=== PATIENT | female | born 1940 | race Caucasian/White ===

== ENCOUNTER 2016-09-16 14:54 | Outpatient (CLI) | payer MEDICARE, MEDICAID ==
--- NOTE | 2016-09-17 11:27 | Ultrasound Report ---
BILATERAL LOWER EXTREMITY DUPLEX: 09/16/2016 CLINICAL INDICATION: Chronic ulcers. TECHNIQUE: Real-time sonographic vascular imaging was performed by the project management instructor through the lower extremities utilizing both color-flow and Doppler spectral analysis. Multiple manufacturers representative static images were saved for review. RIGHT SIDE SITE PSV WAVEFORM STEN DAMAGE APPRAISER 170 triphasic PSFA 153 triphasic MSFA 167 triphasic DSFA 106 triphasic PFA 102 biphasic POP 125 triphasic ARIADNE 82 monophasic [place] 114 biphasic PER 74 monophasic DPA 19 monophasic LEFT SIDE SITE PSV WAVEFORM STEN DAMAGE APPRAISER 180 triphasic PSFA 108 triphasic MSFA 128 triphasic DSFA 105 triphasic PFA 94 biphasic POP 91 triphasic ARIADNE 85 triphasic [place] 121 triphasic PER 132 triphasic DPA 67 triphasic TECHNIQUE: Real-time scanning was performed. FINDINGS: Right leg: Waveforms are triphasic through the popliteal, with monophasic waveforms in the calf. There is no evidence of a focal velocity increase to suggest a focal hemodynamically significant stenosis. Left leg: Waveforms are diffusely triphasic. There is no evidence of a focal velocity increase to suggest a hemodynamically significant stenosis. IMPRESSION: MONOPHASIC WAVEFORMS IN THE RIGHT CALF, SUGGESTIVE OF SMALL VESSEL DISEASE. NO EVIDENCE OF A FOCAL HEMODYNAMICALLY SIGNIFICANT ARTERIAL STENOSIS IN EITHER LEG. MTDD
== END 2016-09-16 14:55 | disposition home or self-care (01) ==
LOC: DI 14:54
PROVIDERS: ATTEND Family Medicine
DX: L97.929 Non-pressure chronic ulcer of unspecified part of left lower leg with unspecified severity (principal); R93.6 Abnormal findings on diagnostic imaging of limbs
CPT/HCPCS: 93925

== ENCOUNTER 2017-02-08 13:57 | Inpatient (IN) | payer MEDICARE, MEDICAID ==
[2017-02-08] MEDS ORDERED: ALBUTEROL NEB 2.5 MG/3 ML INH STA ×2 (14:34→17:44)
--- NOTE | 2017-02-08 14:34 | ED Physician Documentation ---
History of Present Illness - Stated complaint Stated Complaint: SOA/LOW BP - Chief complaint Chief Complaint: Resp - Additonal information Additional information: hx from pt 76 female pmhx HTN bronchitis and walking pna SOA s CP fever or change in baseline cough for 2 days went to clinic today and o2 sat was in the 70s so sent to ER no hx CAD CHF DVT PE, denies COPD and asthma has venous stasis so legs are wrapped Review of Systems Constitutional: denies: Fever, Chills Cardiac: denies: Chest pain / pressure, Palpitations Respiratory: reports: Dyspnea, Cough. denies: Wheezing GI: denies: Abdominal Pain Musculoskeletal: denies: Extremity swelling Endocrine: denies: Easy bruising / bleeding Immunocompromised: denies: Immunocompromised PD PAST MEDICAL HISTORY - Past Medical History Past Medical History: Yes Cardiovascular: Hypertension, Peripheral Vascular Disease Respiratory: Asthma Neuro: Peripheral neuropathy GI: GERD, Diverticulitis : Incontinence HEENT: Chronic vision loss, Chronic hearing loss Musculoskeletal: None, Other Derm: Herpes zoster Other Past Medical History: narcolepsy - Past Surgical History Past Surgical History: Yes General: Colonoscopy HEENT: Tonsil/Adenoidectomy - Present Medications Home Medications: Ambulatory Orders Medication Instructions Recorded Confirmed Losartan Potassium 50 mg PO DAILY 10/09/15 08/05/16 Oxybutynin [Oxytrol For Women] 1 each TD Q4D 10/09/15 08/05/16 Oxycodone HCl 5 mg PO BID 10/09/15 08/05/16 Cholecalciferol (Vitamin D3) 5,000 units PO DAILY 01/01/16 08/05/16 [Vitamin D3] Cyanocobalamin (Vitamin B-12) 5,000 mcg PO DAILY 01/01/16 08/05/16 [Vitamin B-12] Glucosam/Chond/MSM/[place]/Hyal 1 - 2 tab PO DAILY 01/01/16 08/05/16 [Glucosamine-Chondr Complex Tab] Multivit with Calcium,Iron,Min 1 tab PO DAILY 01/01/16 08/05/16 [Multiple Vitamins For Women] Potassium Gluconate 5 meq PO DAILY 01/01/16 08/05/16 Alpha Lipoic Acid [Lipoic Acid] 600 mg PO DAILY 05/06/16 08/05/16 Calcium Carbonate/Vitamin D3 2 tab PO DAILY 05/06/16 08/05/16 [Calcium 500 + Vit D Caplet] Cinnamon Bark [Cinnamon] 500 mg PO TID 05/06/16 08/05/16 Garlic 1,000 mg PO DAILY 05/06/16 08/05/16 Lactobacillus Acidophilus 2 each PO DAILY 05/06/16 08/05/16 [Acidophilus] [place]-3/Dha/Epa/Fish Oil [Fish Oil 1,000 mg PO BID 05/06/16 08/05/16 1,000 mg Softgel] Ubidecarenone/Vitamin E Mixed 1 each PO DAILY 05/06/16 08/05/16 [Ysj86-Nzz E 100 mg-10 Unit Sfg] Vitamin B Complex 1 each PO DAILY 05/06/16 08/05/16 Vitamin E 400 unit PO BID 05/06/16 08/05/16 - Allergies Allergies/Adverse Reactions: Allergies Allergy/AdvReac Type Severity Reaction Status Date / Time aloe Allergy Unknown Verified 10/09/15 16:32 - Social History Does the pt smoke?: No Smoking Status: Never smoker Does the pt drink ETOH?: No Does the pt have substance abuse?: No - Immunizations Immunizations are current?: Yes PD ED PE NORMAL - Vitals Vital signs reviewed: Yes - General General: Alert and oriented X 3 - HEENT HEENT: PERRL - Neck Neck: Supple, no meningeal sign - Cardiac Cardiac: RRR - Respiratory Respiratory: Other (decrease bilaterally L > R) - Abdomen Abdomen: Soft, Non tender - Derm Derm: Normal color - Extremities Extremities: Other (aileen LE wrapped in compression dressing for venous statis appear approx symm) - Neuro Neuro: Alert and oriented X 3, No motor deficit Results - Vitals Vitals: Vital Signs - 24 hr 02/08/17 02/08/17 02/08/17 14:04 14:14 15:06 Temperature 36.6 C Heart Rate 91 84 Respiratory 20 16 Rate Blood Pressure 142/84 H O2 Saturation 76 L 94 Oxygen O2 Source Nasal cannula Oxygen Flow Rate 4 - EKG (time done) 1448 Rate: Rate (enter#) (82) Rhythm: NSR [place]: Normal Ischemia: Non specific changes Other comments: Other comments (poor shaky baseline despute numerous attempts - coving I but no sig elev and questionable Q waves - doubt acute ischemia - also trop neg after 2 days of sx) - Labs Labs: Laboratory Tests 02/08/17 02/08/17 02/08/17 15:05 15:05 15:05 WBC 7.1 RBC 5.42 H Hgb 13.3 Hct 42.6 MCV 78.7 L MCH 24.5 L MCHC 31.1 L RDW 17.0 H Plt Count 248 MPV 7.3 L Neut # 5.6 Lymph # 0.9 L [place] # 0.5 Eos # 0.1 Baso # 0.0 Absolute Nucleated RBC 0.01 Nucleated RBC % 0.1 D-Dimer 689.4 H Sodium 138 Potassium 4.3 Chloride 95 L Carbon Dioxide 37 H Anion Gap 6.0 BUN 33 H Creatinine 0.7 Estimated GFR (MDRD) 82 L Glucose 120 H Calcium 9.0 Troponin I B-Natriuretic Peptide 02/08/17 02/08/17 15:05 15:05 WBC RBC Hgb Hct MCV MCH MCHC RDW Plt Count MPV Neut # Lymph # [place] # Eos # Baso # Absolute Nucleated RBC Nucleated RBC % D-Dimer Sodium Potassium Chloride Carbon Dioxide Anion Gap BUN Creatinine Estimated GFR (MDRD) Glucose Calcium Troponin I 0.04 B-Natriuretic Peptide 617 H - Rads (name of study) CXR Radiology: See rad report (diomegaly, bilateral hilar fullness, ? fluid overload , opecity laterla lung base could be atelectasis or infiltrate) CTPA Radiology: See rad report (no PE, small left pleural effusion witj atelectasis, L thyroid nodule needs outpt fup sono) PD MEDICAL DECISION MAKING - ED course ED course: profound hypoxia CXR and BNP suggest mild CHF but not enough to explain O2 sat in the 70s no pna no opneumo no effusion got CTPA and no PE seen - also no pericardial effusion, infiltrate etc pt was dec on initial exam and then bit wheeze after nebs, no known hx asthma ( despite NN pt denies, states maybe when she was a teenager but not now) or COPD will start steroids and nebs and perhaps some lasix to diurese as well and feel pt should be admitted for further work up such as echo and tx Departure - Departure Disposition: 66 [facility] DC/Xfer Clinical Impression: Hypoxia Condition: Fair
[2017-02-08 15:18] LABS: BASOPHILS % (AUTO) 0.6 %; EOSINOPHILS # (AUTO) 0.1 10^3/uL (0.0-0.7); EOSINOPHILS % (AUTO) 1.4 %; HGB - HEMOGLOBIN 13.3 g/dL (12.0-16.0); LYMPHOCYTES # (AUTO) 0.9 10^3/uL (1.5-3.5); LYMPHOCYTES % (AUTO) 12.1 %; MEAN CORPUSCULAR HEMOGLOBIN 24.5 pg (27.0-31.0); MEAN CORPUSCULAR HGB CONC 31.1 g/dL (32.0-36.0); MEAN CORPUSCULAR VOLUME 78.7 fL (81.0-99.0); MEAN PLATELET VOLUME 7.3 fL (7.9-10.8); MONOCYTES # (AUTO) 0.5 10^3/uL (0.0-1.0); NEUTROPHILS # (AUTO) 5.6 10^3/uL (1.5-6.6); NEUTROPHILS % (AUTO) 78.9 %; PLT - PLATELET COUNT 248 10^3/uL (130-450); RED BLOOD COUNT 5.42 10^6/uL (4.20-5.40); WHITE BLOOD COUNT 7.1 x10^3/uL (4.8-10.8)
[2017-02-08 15:30] LABS: CREATININE 0.7 mg/dL (0.4-1.0)
--- NOTE | 2017-02-08 16:11 | XRAY Report ---
EXAM: CHEST RADIOGRAPHY EXAM DATE: 02/08/2017 03:49 PM. CLINICAL HISTORY: Soa hypoxia. COMPARISON: None available. TECHNIQUE: 1 view. FINDINGS: Lungs/Pleura: There is increased opacity in the lateral lung bases. No pneumothorax. Mediastinum: Cardiomegaly is present. There is bilateral hilar fullness. There is atherosclerotic phyllis cification in aortic arch. Other: None. IMPRESSION: 1. Cardiomegaly with bilateral hilar fullness, question developing fluid overload. 2. Opacity in the lateral lung bases, which may represent a soft tissue attenuation artifact versus i nfiltrate. [facility] Referring Provider Line: [phone] SITE ID: [id number]
[2017-02-08] MEDS ORDERED: IOPAMIDOL-300 100 ML VIAL ONE (16:16)
[2017-02-08] MEDS ORDERED: IOPAMIDOL-300 100 ML VIAL IVP ONE (16:50)
--- NOTE | 2017-02-08 17:19 | CT Report ---
EXAM: CT ANGIOGRAM CHEST EXAM DATE: 02/08/2017 04:54 PM. CLINICAL HISTORY: Soa hypoxic + d-dimer. COMPARISON: Chest radiograph, same day.. TECHNIQUE: Routine helical imaging was performed through the chest in the pulmonary arterial phase. I V Contrast: 80 mL Isovue 300. Reconstructions: Coronal 3-D MIP reconstructions.Sagittal and coronal. In accordance with CT protocol optimization, one or more of the following dose reduction techniques w ere utilized for this exam: automated exposure control, adjustment of mA and/or KV based on patient s ize, or use of iterative reconstructive technique. FINDINGS: Pulmonary Arteries: Diagnostic quality: There is some respiratory motion degradation in bolus timing is suboptimal, but o verall adequate through the segmental arteries. No evidence for acute or chronic pulmonary emboli. RV/LV is within normal limits. There is no interventricular septal bowing. There is no reflux of cont rast material in the IVC. Lungs/Pleura: There are geographic areas of groundglass attenuation, which can be seen with air daniel ing or small vessel disease. There is a small left pleural effusion measuring approximately 2.2 cm wi th adjacent passive atelectasis. No pneumothorax. No focal infiltrate or consolidation. Mediastinum: Normal. No cardiac enlargement or adenopathy. Thoracic Aorta: Mild atherosclerotic vascular calcifications. Upper Abdomen: Unremarkable. Other: Heterogeneous left thyroid nodule series 7 image 21 measuring 3.1 x 4 cm. IMPRESSION: 1. Negative for pulmonary embolism. 2. Small left pleural effusion with adjacent atelectasis. 3. There is a left thyroid nodule for which a follow-up thyroid ultrasound exam should be considered. [facility] Referring Provider Line: [phone] SITE ID: [id number]
[2017-02-08] MEDS ORDERED: FUROSEMIDE 40 MG/4 ML VIAL IVP STA (17:44)
[2017-02-08] MEDS ORDERED: methylPREDNISolone SUCCINATE 125 MG/2 ML VIAL IVP STA (17:44)
[2017-02-08] MEDS ORDERED: PROCHLORPERAZINE 10 MG/2 ML VIAL IVP PRN (18:09)
[2017-02-08] MEDS ORDERED: oxyCODONE 5 MG TABLET PO PRN (18:09)
[2017-02-08] MEDS ORDERED: ONDANSETRON 4 MG/2 ML VIAL IVP PRN (18:09)
[2017-02-08] MEDS ORDERED: ACETAMINOPHEN 325 MG TABLET PO PRN (18:09)
[2017-02-08] MEDS ORDERED: OXYBUTYNIN TOP SCH (18:15)
[2017-02-08 19:03] LABS: ABG PH 7.32 (7.35-7.45)
[2017-02-08 19:04] LABS: ABG BASE EXCESS 7.4 mmol/L (-2.0-3.0); ABG HCO3 36.1 mmol/L (22.0-26.0); ABG OXYGEN SATURATION 95 % (94-98); ABG PCO2 72 mmHg (34-45); ABG PO2 80 mmHg (80-100); ABG TCO2 38.3 MMOL/L (21.0-29.0); ALLEN TEST POSITIVE
[2017-02-08] MEDS: oxyCODONE 5 MG TABLET PO PRN (19:52)
[2017-02-08] MEDS: OMEGA-3 ACID ETHYL ESTERS 1 GM CAPSULE PO SCH (20:56)
[2017-02-08] MEDS: FUROSEMIDE 40 MG/4 ML VIAL IVP SCH (20:58)
[2017-02-08] MEDS: CHLORHEXIDINE GLUCONATE 15 ML UDC PO SCH (20:58)
[2017-02-08] MEDS: methylPREDNISolone SUCCINATE 40 MG/ML VIAL IVP SCH ×2 (21:07→22:57)
[2017-02-08] MEDS: SODIUM CHLORIDE FLUSH 0.9% 10 ML SYRINGE IVP SCH (21:07)
[2017-02-09 01:05] LABS: ABG BASE EXCESS 9.3 mmol/L (-2.0-3.0); ABG OXYGEN SATURATION 92 % (94-98); ABG PH 7.27 (7.35-7.45); ABG PO2 72 mmHg (80-100); ALLEN TEST POSITIVE
[2017-02-09 01:09] LABS: ABG PCO2 89 mmHg (34-45); ABG TCO2 42.8 MMOL/L (21.0-29.0)
[2017-02-09 02:48] LABS: ABG BASE EXCESS 7.2 mmol/L (-2.0-3.0); ABG HCO3 27.8 mmol/L (22.0-26.0); ABG OXYGEN SATURATION 95 % (94-98); ABG PH 7.26 (7.35-7.45); ABG PO2 81 mmHg (80-100)
[2017-02-09 02:49] LABS: ALLEN TEST POSITIVE
[2017-02-09 02:50] LABS: ABG PCO2 87 mmHg (34-45); ABG TCO2 40.4 MMOL/L (21.0-29.0)
[2017-02-09 05:37] LABS: BASOPHILS % (AUTO) 0.1 %; HGB - HEMOGLOBIN 12.7 g/dL (12.0-16.0); LYMPHOCYTES # (AUTO) 0.2 10^3/uL (1.5-3.5); LYMPHOCYTES % (AUTO) 4.4 %; MEAN CORPUSCULAR HEMOGLOBIN 24.2 pg (27.0-31.0); MEAN CORPUSCULAR HGB CONC 30.3 g/dL (32.0-36.0); MEAN PLATELET VOLUME 7.7 fL (7.9-10.8); MONOCYTES % (AUTO) 0.7 %; NEUTROPHILS # (AUTO) 4.1 10^3/uL (1.5-6.6); NEUTROPHILS % (AUTO) 94.8 %; PLT - PLATELET COUNT 225 10^3/uL (130-450); RED BLOOD COUNT 5.27 10^6/uL (4.20-5.40); RED CELL DISTRIBUTION WIDTH 17.2 % (12.0-15.0); WHITE BLOOD COUNT 4.3 x10^3/uL (4.8-10.8)
[2017-02-09 05:55] LABS: ALBUMIN 3.1 g/dL (3.2-5.5); ALBUMIN/GLOBULIN RATIO 0.9 (1.0-2.2); BILIRUBIN,TOTAL 0.4 mg/dL (0.2-1.0); CREATININE 0.6 mg/dL (0.4-1.0); MAGNESIUM 2.2 mg/dL (1.7-2.8); TOTAL PROTEIN 6.7 g/dL (6.7-8.2)
[2017-02-09] MEDS: SODIUM CHLORIDE FLUSH 0.9% 10 ML SYRINGE IVP SCH ×3 (06:40→22:18)
[2017-02-09] MEDS: methylPREDNISolone SUCCINATE 40 MG/ML VIAL IVP SCH ×3 (06:40→22:17)
--- NOTE | 2017-02-09 08:02 | HISTORY & PHYSICAL EXAMINATION ---
Chief Complaint - Chief Complaint Chief Complaint: Shortness of breath History of Present Illness - Admitted From Admitted From:: Emergency department - History Obtained From Records Reviewed: Yes History obtained from: Patient Exam Limitations: None - History of Present Illness HPI Comment/Other: Patient is a 76-year-old female with a past medical history significant for morbid obesity, childhood asthma, hypertension, overactive bladder, chronic venous stasis of her lower extremities, chronic pain of her lower extremities and right hip from arthritis who presented to the emergency department with a chief complaint of shortness of breath. The patient states that she was in her normal state of health until 2 days ago when she states that she began feeling short of air. She states that she went for an appointment regarding her lower extremity venous stasis as she was going to be getting ready for a procedure. She states that at that appointment she was noted to have an oxygen saturation in the 80s and her blood pressure was low. She states that she was told to go to the ER at that time however she decided against it as she was with her daughter and she states that she did not feel that bad. She states that she called her primary care physician when she got back home but did not receive a call back. She states that that night she had a lot of trouble sleeping and was having difficulty breathing throughout the night. She states that over the last 2 days she has had increasing cough with thick phlegm. She states that she has had to sleep in a recliner and she states that if she lies back even slightly she becomes very short of air. She states that she cannot lie flat at all. Patient states that at home she gets around with a wheelchair and today she states that just getting from her recliner to her wheelchair she became very short of air. The patient states that she was finally able to get a hold of her primary care physician this morning and was able to go in for a walk-in appointment. She states that just going to the appointment she became very exhausted and short of air. When she arrived her oxygen saturation was in the 70s and she was told to go to the emergency department. The patient states that at this point she had severe enough symptoms that she finally decided to go to the ER. The patient denies any fevers or chills. She denies any chest pain or increased lower extremity swelling. The patient states that she does have chronic lower extremity swelling. She does admit to paroxysmal nocturnal dyspnea for the last 2 days. Patient denies any headaches, blurred vision, runny nose, sore throat, nasal congestion, abdominal pain, nausea, vomiting, diarrhea, constipation, urinary urgency, dysuria, recent unintentional weight loss, weight gain, neck stiffness or any focal neurologic deficits. The patient does admit to chronic pain in her right hip and her left lower extremity. On presentation to the emergency department the patient was afebrile heart rate was 91 she was slightly hypertensive and tachypneic the patient's oxygen saturation was 76% on room air. The patient did not appear to have any conversational dyspnea nor was she in respiratory distress at rest. However it was noted that if she exerted herself at all that she would become short of air. The patient underwent routine lab testing which revealed no leukocytosis and a normal hemoglobin. The patient did have an elevated d-dimer. She also was found to have an elevated CO2 on her chemistry of 37 and an elevated BNP of 617. Otherwise the remainder of her tests including her troponin were all within normal limits. The patient underwent imaging including a chest x-ray which revealed cardiomegaly with bilateral hilar fullness questionable for fluid overload. She did have opacities in the lateral lung base which could represent soft tissue attenuation versus infiltrate. The patient then underwent a CT angios of her chest this revealed no pulmonary embolism and a small left pleural effusion with adjacent atelectasis. She was also noted to have a left thyroid nodule. The patient was found to have groundglass attenuation which can be seen in air trapping or small vessel disease. There was no findings of focal infiltrate or consolidation. The patient had a blood gas performed in the emergency department which revealed that she was acidotic with a pH of 7.32 with hypercapnia and a CO2 of 72 and a PO2 of 80 on 4 L of oxygen. The patient was admitted to the intensive care unit on BiPAP for acute respiratory failure with hypoxia and hypercapnia. History - Past Medical History Cardiovascular: reports: Hypertension, Peripheral Vascular Disease Respiratory: reports: Asthma Neuro: reports: Peripheral neuropathy GI: reports: GERD, Diverticulitis : reports: Incontinence HEENT: reports: Chronic vision loss, Chronic hearing loss Psych: reports: Anxiety Musculoskeletal: reports: None, Other Derm: reports: Herpes zoster MRSA Hx?: Yes Other Past Medical History: narcolepsy - Past Surgical History General: reports: Colonoscopy HEENT: reports: Tonsil/Adenoidectomy - Family & Social History Family History: Mother: , CAD, Father: , Alcoholism (Daughter), Brother: Mental Illness, Other family: Alcoholism Living arrangement: At home Living Situation: Alone Social History Notes: The patient is originally from [place], [place]. She moved to [facility] to be closer to her daughter. She currently lives in [place] in an apartment. She gets around the house with a wheelchair and is able to stand and transfer. The patient has 4 daughters and 12 grandchildren. She is and has been since 1998. She has never smoked she does occasionally drink a glass of wine and denies any illicit drug use. - POLST Patient has POLST: No POLST Status: DNR Meds/Allgy - Home Medications Home Medications: Ambulatory Orders Medication Instructions Recorded Confirmed Losartan Potassium 50 mg PO DAILY 10/09/15 08/05/16 Oxybutynin [Oxytrol For Women] 1 each TD Q4D 10/09/15 08/05/16 Oxycodone HCl 5 mg PO BID 10/09/15 08/05/16 Cholecalciferol (Vitamin D3) 5,000 units PO DAILY 01/01/16 08/05/16 [Vitamin D3] Cyanocobalamin (Vitamin B-12) 5,000 mcg PO DAILY 01/01/16 08/05/16 [Vitamin B-12] Glucosam/Chond/MSM/[place]/Hyal 1 - 2 tab PO DAILY 01/01/16 08/05/16 [Glucosamine-Chondr Complex Tab] Multivit with Calcium,Iron,Min 1 tab PO DAILY 01/01/16 08/05/16 [Multiple Vitamins For Women] Potassium Gluconate 5 meq PO DAILY 01/01/16 08/05/16 Alpha Lipoic Acid [Lipoic Acid] 600 mg PO DAILY 05/06/16 08/05/16 Calcium Carbonate/Vitamin D3 2 tab PO DAILY 05/06/16 08/05/16 [Calcium 500 + Vit D Caplet] Cinnamon Bark [Cinnamon] 500 mg PO TID 05/06/16 08/05/16 Garlic 1,000 mg PO DAILY 05/06/16 08/05/16 Lactobacillus Acidophilus 2 each PO DAILY 05/06/16 08/05/16 [Acidophilus] [place]-3/Dha/Epa/Fish Oil [Fish Oil 1,000 mg PO BID 05/06/16 08/05/16 1,000 mg Softgel] Ubidecarenone/Vitamin E Mixed 1 each PO DAILY 05/06/16 08/05/16 [[id number] E 100 mg-10 Unit Sfg] Vitamin B Complex 1 each PO DAILY 05/06/16 08/05/16 Vitamin E 400 unit PO BID 05/06/16 08/05/16 - Allergies Allergies/Adverse Reactions: Allergies Allergy/AdvReac Type Severity Reaction Status Date / Time aloe Allergy Unknown Verified 10/09/15 16:32 Review of Systems - Other Findings Other Findings: A comprehensive review of systems was performed the pertinent positives and negatives are stated above in the HPI and the remainder of the review of systems is negative. Exam - Vital Signs Reviewed Vital Signs: Yes Vital Signs: Vital Signs x48h Temp Pulse Resp BP Pulse Ox 02/09/17 07:00 77 18 108/57 L 92 02/09/17 06:00 76 17 115/58 L 93 02/09/17 05:00 74 17 116/65 95 02/09/17 04:00 36.7 C 76 18 119/54 L 95 02/09/17 03:00 74 21 121/56 L 94 02/09/17 02:00 74 20 119/52 L 91 L 02/09/17 01:00 72 21 113/54 L 92 02/09/17 00:00 36.8 C 80 21 117/57 L 95 - Physical Exam General Appearance: positive: Alert, Moderate distress (Short of air, tachypneic ), Other (Morbidly obese) Eyes Bilateral: positive: Normal inspection, PERRL, EOMI, No lid inflammation, Conjunctivae nml, No scleral icterus ENT: positive: ENT inspection nml, Pharynx nml, No signs of dehydration. negative: Purulent nasal drainage, Pharyngeal erythema, Oral lesions Neck: positive: Nml inspection, Thyroid nml, No JVD, Trachea midline. negative : Thyromegaly, Lymphadenopathy (R), Lymphadenopathy (L), Carotid bruit, Tracheal deviation Respiratory: positive: Wheezes (Mild, scattered), Rales (Bases), Other ( Dereased breath sounds bilaterally) Cardiovascular: positive: Regular rate & rhythm, No murmur, No gallop Peripheral Pulses: positive: 2+ Abdomen: positive: Non-tender, No organomegaly, Nml bowel sounds, Other (Obese) . negative: Guarding, Rebound Back: positive: Nml inspection. negative: CVA tenderness (R), CVA tenderness (L ) Skin: positive: Dry, Other (Chronic changes of venous stasis in bilateral LEs). negative: Cyanosis Extremities: positive: Full ROM, Pedal edema (Bilateral LE edema) Neurologic/Psychiatric: positive: Oriented x3, CN's nml (2-12), Motor nml, Sensation nml, Sensory loss (Decreased in LEs) Conclusion/Plan - Problem List (1) Acute respiratory failure with hypoxia and hypercapnia Conclusion/Plan: Patient presented with shortness of breath, orthopnea, trouble sleeping and history of narcolepsy. She is also morbidly obese. She was hypoxic with O2 sat in 70s on presentation and ABG showed hypoxia and hypercapnia with respiratory acidosis. Patient admitted to ICU on BiPAP. Likely cause of respiratory failure is likely multifactorial: Patient does not have pneumonia or PE but CXR does show cardiomegaly with evidence of pulmonary congestion, she has orthopnea at home and LE swelling concerning for CHF given her body habitus this is likely diastolic but could also be systolic. Patient likely has chronic undiagnosed LISANDRA per her symptoms of day time sleepiness and night time awakenings plus body habitus. Patient also likely has obesity hypoventilation syndrome. She does have history of asthma and did improve slightly with nebs in the ER therefore might have some COPD/Asthma as well. Plan: BiPAP Lasix with fluid and salt restriction Echo Nebs, steroids, O2 Monitor ABGs, BNP and I/Os (2) COPD exacerbation Conclusion/Plan: Patient improved with nebs in ER and has history of Asthma so will treat for COPD exacerbation Presented with acute respiratory failure Plan: Nebs prn Steroid TID O2 BiPAP (3) CHF exacerbation Conclusion/Plan: Patient presented with acute respiratory failure with hypoxia and hypercapnia and found to have orthopnea, PND, LE edema and has pulmonary congestion on Xray with cardiomegaly Patient likely has diastolic heart failure with pulmonary hypertension likely from OHS/LISANDRA but will need echo to confirm Plan: IV lasix BID Daily weights Strict I/Os Echo Will add BB and STEFF Inh if systolic HF Qualifiers: Congestive heart failure type: unspecified congestive heart failure type Qualified Code(s): I50.9 - Heart failure, unspecified (4) LISANDRA (obstructive sleep apnea) Conclusion/Plan: Patient appears to likely have LISANDRA given her obesity and symptoms Will treat her with BiPAP and O2 at night while hospitalized Will need outpatient Sleep study (5) Obesity Conclusion/Plan: Patient is morbidly obese and has acute respiratory failure with hypercapnia and hypoxia She likely has Obesity Hypoventilation syndrome which is affecting her breathing She will need to lose weight She will also need outpatient PFTs and ABG once her pH is normal to confirm. Qualifiers: Body mass index: BMI 40.0-44.9 (6) Hypertension Conclusion/Plan: Patient has history of hypertension which could have lead to CHF and pulm HTN Plan: Echo Continue home BP meds Monitor BP Qualifiers: Hypertension type: essential hypertension Qualified Code(s): I10 - Essential (primary) hypertension (7) Thyroid nodule Conclusion/Plan: Check TSH, T3, T4 Ultrasound of the thyroid (8) Prophylactic use of low molecular weight heparin for venous thromboembolism Conclusion/Plan: Place on lovenox while hospitalized for DVT prophylaxis - Lab Results Lab results reviewed: Yes Fish Bones: 02/09/17 04:46 02/09/17 04:46 Other Lab Results: Laboratory Results WBC 4.3 x10^3/uL (4.8-10.8) L 02/09/17 04:46 RBC 5.27 10^6/uL (4.20-5.40) 02/09/17 04:46 Hgb 12.7 g/dL (12.0-16.0) 02/09/17 04:46 Hct 42.1 % (37.0-47.0) 02/09/17 04:46 MCV 80.0 fL (81.0-99.0) L 02/09/17 04:46 MCH 24.2 pg (27.0-31.0) L 02/09/17 04:46 MCHC 30.3 g/dL (32.0-36.0) L 02/09/17 04:46 RDW 17.2 % (12.0-15.0) H 02/09/17 04:46 Plt Count 225 10^3/uL (130-450) 02/09/17 04:46 MPV 7.7 fL (7.9-10.8) L 02/09/17 04:46 Neut # 4.1 10^3/uL (1.5-6.6) 02/09/17 04:46 Lymph # 0.2 10^3/uL (1.5-3.5) L 02/09/17 04:46 Prentiss # 0.0 10^3/uL (0.0-1.0) 02/09/17 04:46 Eos # 0.0 10^3/uL (0.0-0.7) 02/09/17 04:46 Baso # 0.0 10^3/uL (0.0-0.1) 02/09/17 04:46 Absolute Nucleated RBC 0.00 x10^3/uL 02/09/17 04:46 Nucleated RBC % 0.1 /100WBC 02/09/17 04:46 D-Dimer 689.4 ng/mL (200.0-255.0) H 02/08/17 15:05 Bld Gas Analysis Time 0245 02/09/17 02:30 Sample Site LEFT RADIAL 02/09/17 02:30 ABG pH 7.26 (7.35-7.45) L 02/09/17 02:30 ABG pCO2 87 mmHg (34-45) H* 02/09/17 02:30 ABG pO2 81 mmHg (80-100) 02/09/17 02:30 ABG HCO3 27.8 mmol/L (22.0-26.0) H 02/09/17 02:30 ABG Total CO2 40.4 MMOL/L (21.0-29.0) H* 02/09/17 02:30 ABG O2 Saturation 95 % (94-98) 02/09/17 02:30 ABG Oximetry Spot Check 92 % 02/09/17 00:55 ABG Base Excess 7.2 mmol/L (-2.0-3.0) H 02/09/17 02:30 Jose Martin Test POSITIVE 02/09/17 02:30 O2 Delivery Device BiPAP 02/09/17 02:30 O2 Liters/Min 4.00 LPM 02/08/17 18:29 FiO2 35.00 02/09/17 02:30 EPAP 6 cmH2O 02/09/17 02:30 IPAP 16 cmH2O 02/09/17 02:30 Sodium 143 mmol/L (135-145) 02/09/17 04:46 Potassium 4.7 mmol/L (3.5-5.0) 02/09/17 04:46 Chloride 97 mmol/L (101-111) L 02/09/17 04:46 Carbon Dioxide 38 mmol/L (21-32) H 02/09/17 04:46 Anion Gap 7.0 (6-13) 02/09/17 04:46 BUN 26 mg/dL (6-20) H 02/09/17 04:46 Creatinine 0.6 mg/dL (0.4-1.0) 02/09/17 04:46 Estimated GFR (MDRD) 97 (>89) 02/09/17 04:46 Glucose 160 mg/dL (70-100) H 02/09/17 04:46 Calcium 9.0 mg/dL (8.5-10.3) 02/09/17 04:46 Magnesium 2.2 mg/dL (1.7-2.8) 02/09/17 04:46 Total Bilirubin 0.4 mg/dL (0.2-1.0) 02/09/17 04:46 AST 18 IU/L (10-42) 02/09/17 04:46 ALT 22 IU/L (10-60) 02/09/17 04:46 Alkaline Phosphatase 60 IU/L (42-121) 02/09/17 04:46 Troponin I < 0.04 ng/mL (<0.49) 02/09/17 04:46 B-Natriuretic Peptide 620 pg/mL (5-100) H 02/09/17 04:46 Total Protein 6.7 g/dL (6.7-8.2) 02/09/17 04:46 Albumin 3.1 g/dL (3.2-5.5) L 02/09/17 04:46 Globulin 3.6 g/dL (2.1-4.2) 02/09/17 04:46 Albumin/Globulin Ratio 0.9 (1.0-2.2) L 02/09/17 04:46 - Diagnostic Imaging Results Diagnostic Imaging Results: positive: Final report reviewed Diagnostic Imaging Results Comments: Chest x-ray Impression: 1. Cardiomegaly with bilateral hilar fullness, question development of fluid overload. 2. Opacity in the lateral lung base, which may represent a soft tissue attenuation artifact versus infiltrate. CT angiogram chest/thorax Impression: 1. Negative for pulmonary embolism. 2. Small left pleural effusion with adjacent atelectasis 3. There is a left thyroid nodule for which follow-up thyroid ultrasound exam should be considered. Core Measures - Anticipated LOS I expect patient to be DC'd or transferred within 96 hours.: Yes - DVT/VTE - Prophylaxis VTE/DVT Prophylaxis med ordered at admit?: Yes
[2017-02-09] MEDS ORDERED: POTASSIUM GLUCONATE PO SCH ×2 (09:00→14:00)
[2017-02-09] MEDS: OMEGA-3 ACID ETHYL ESTERS 1 GM CAPSULE PO SCH ×2 (09:26→20:47)
[2017-02-09] MEDS: CALCIUM CARBONATE CHEW 500 MG TABLET PO SCH (09:26)
[2017-02-09] MEDS: MULTIVITAMIN W/MINERALS TABLET PO SCH (09:27)
[2017-02-09] MEDS: CHOLECALCIFEROL 5,000 UNIT CAPSULE PO SCH (09:28)
[2017-02-09] MEDS: FUROSEMIDE 40 MG/4 ML VIAL IVP SCH ×2 (09:28→20:47)
[2017-02-09 09:34] LABS: T4 (THYROXINE) 6.44 ug/dL (6.09-12.23)
[2017-02-09 09:37] LABS: THYROID STIMULATING HORMONE 0.52 uIU/mL (0.34-5.60)
[2017-02-09 09:39] LABS: FREE T4 (FREE THYROXINE) 0.91 ng/dL (0.58-1.64)
[2017-02-09 09:44] LABS: TOTAL T3 0.52 ng/mL (0.87-1.78)
[2017-02-09 09:55] LABS: ABG PH 7.32 (7.35-7.45); ABG PO2 65 mmHg (80-100)
[2017-02-09 09:56] LABS: ABG BASE EXCESS 5.4 mmol/L (-2.0-3.0); ABG HCO3 33.7 mmol/L (22.0-26.0); ABG OXYGEN SATURATION 92 % (94-98); ABG TCO2 35.8 MMOL/L (21.0-29.0)
[2017-02-09 10:02] LABS: ABG PCO2 67 mmHg (34-45)
[2017-02-09] MEDS: CHLORHEXIDINE GLUCONATE 15 ML UDC PO SCH ×2 (10:14→20:47)
[2017-02-09] MEDS: ENOXAPARIN 40 MG/0.4 ML SYRINGE SUBQ SCH (10:15)
[2017-02-09] MEDS: LOSARTAN 50 MG TABLET PO SCH (11:08)
[2017-02-09] MEDS: FAMOTIDINE 20 MG TABLET PO SCH (11:09)
[2017-02-09] MEDS: POLYETHYLENE GLYCOL 3350 17 GM PACKET PO SCH (11:10)
[2017-02-09] MEDS: Cyanocobalamin (Vitamin B-12) [Vitamin B-12] 5,000 MCG PO SCH (12:13)
[2017-02-09] MEDS: oxyCODONE 5 MG TABLET PO PRN ×2 (13:02→20:44)
--- NOTE | 2017-02-09 13:39 | XRAY Preliminary Report ---
Exam: XR CHEST 1 VIEW IMPRESSION: Minimal left basilar atelectasis and trace left pleural effusion. Otherwise, lungs are clear. [facility] SITE ID: [id number]
--- NOTE | 2017-02-09 13:39 | XRAY Report ---
EXAM: CHEST RADIOGRAPHY EXAM DATE: 02/09/2017 09:15 AM. CLINICAL HISTORY: Hypoxia. COMPARISON: CT and plain film from yesterday. TECHNIQUE: 1 view. FINDINGS: Lungs/Pleura: Minimal left basilar atelectasis. Trace left pleural effusion. No pneumothorax. Mediastinum: Within exam limitations, the cardiomediastinal contour is normal. Mild aortic calcificat ions consistent with atherosclerotic disease. Other: Mild osteoarthritis of both shoulders. Degenerative changes within the spine. IMPRESSION: Minimal left basilar atelectasis and trace left pleural effusion. Otherwise, lungs are clear. [facility] Referring Provider Line: [phone] SITE ID: [id number]
[2017-02-09] MEDS: SODIUM CHLORIDE FLUSH 0.9% 10 ML SYRINGE IVP PRN ×2 (14:53→20:48)
--- NOTE | 2017-02-09 15:11 | Ultrasound Report ---
EXAM: THYROID ULTRASOUND EXAM DATE: 02/09/2017 10:41 AM. CLINICAL HISTORY: Left thyroid nodule seen on CT. COMPARISON: CTA chest 02/08/2017. TECHNIQUE: Real time sonographic imaging of the thyroid was performed by the elevators inspector. Multiple re presentative static images were saved for review. FINDINGS: Technically suboptimal evaluation secondary to patient positioning. THYROID GLAND: Right Lobe: 3.6 x 1.9 x 2.0 cm, volume 7 cc. Diffusely heterogeneous. Right Lobe Nodules: 1.6 cm mildly hypoechoic nodule. The margins are not definitely distinct. No calc ifications or internal vascular flow demonstrated. Left Lobe: 4.0 x 2.9 x 3.1 cm, volume 19 cc. The left thyroid lobe is nearly completely replaced by a heterogeneous nodule measuring 4.0 x 2.9 x 2.8 cm. There is no definite internal calcification and no significant internal vascular flow. Isthmus: 0.8 cm AP. Isthmic Nodules: 1.2 cm hypoechoic nodule. The isthmus and nodule were only imaged in one view; unabl e to fit transducer sagittally. LYMPH NODES: No adenopathy demonstrated in the central or lateral compartment. OTHER: None. IMPRESSION: 1. Technically suboptimal evaluation secondary to patient positioning. 2. Multiple thyroid nodules as above. The largest nodule is in the left lobe and meets consensus crit gregor for tissue sampling. Management recommendations are based on 2015 [place] Management Guidelines for A dult Patients with Thyroid Nodules and Differentiated Thyroid Cancer. [facility] Referring Provider Line: [phone] SITE ID: [id number]
--- NOTE | 2017-02-09 15:11 | Ultrasound Preliminary Report ---
Exam: US HEAD OR NECK SOFT TISSUE IMPRESSION: 1. Technically suboptimal evaluation secondary to patient positioning. 2. Multiple thyroid nodules as above. The largest nodule is in the left lobe and meets consensus crit eria for tissue sampling. Management recommendations are based on 2015 [place] [employer] Management Guidelines for A dult Patients with Thyroid Nodules and Differentiated Thyroid Cancer. [facility] SITE ID: [id number]
--- NOTE | 2017-02-09 16:37 | PROVIDER PROGRESS NOTE ---
Assessment/Plan - Problem List (1) Acute respiratory failure with hypoxia and hypercapnia Assessment/Plan: Patient presented with shortness of breath, orthopnea, trouble sleeping and history of narcolepsy. She is also morbidly obese. She was hypoxic with O2 sat in 70s on presentation and ABG showed hypoxia and hypercapnia with respiratory acidosis. Patient admitted to ICU on BiPAP. Likely cause of respiratory failure is likely multifactorial: Patient does not have pneumonia or PE but CXR does show cardiomegaly with evidence of pulmonary congestion, she has orthopnea at home and LE swelling concerning for CHF given her body habitus this is likely diastolic but could also be systolic. Patient likely has chronic undiagnosed LISANDRA per her symptoms of day time sleepiness and night time awakenings plus body habitus. Patient also likely has obesity hypoventilation syndrome. She does have history of asthma and did improve slightly with nebs in the ER therefore might have some COPD/Asthma as well. Patient appears much improved with lasix and BiPAP Off BiPAP this am ABG looks improved and patient alert Patient still short of breath with minimal exertion Will keep in ICU and watch closely in the case she needs BiPAP again tonight O2 requirements decreasing (2) COPD exacerbation Conclusion/Plan: Patient improved with nebs in ER and has history of Asthma so will treat for COPD exacerbation Presented with acute respiratory failure Continue Nebs prn Steroid TID O2 BiPAP as needed (3) CHF exacerbation Conclusion/Plan: Patient presented with acute respiratory failure with hypoxia and hypercapnia and found to have orthopnea, PND, LE edema and has pulmonary congestion on Xray with cardiomegaly Patient likely has diastolic heart failure with pulmonary hypertension likely from OHS/LISANDRA but will need echo to confirm Continue IV lasix BID Good urine output Echo pending no tech over holiday Will add BB and STEFF Inh if systolic HF (4) LISANDRA (obstructive sleep apnea) Conclusion/Plan: Patient appears to likely have LISANDRA given her obesity and symptoms Will treat her with BiPAP and O2 at night while hospitalized Will need outpatient Sleep study (5) Obesity Conclusion/Plan: Patient is morbidly obese and has acute respiratory failure with hypercapnia and hypoxia She likely has Obesity Hypoventilation syndrome which is affecting her breathing She will need to lose weight She will also need outpatient PFTs and ABG once her pH is normal to confirm. Qualifiers: Body mass index: BMI 40.0-44.9 (6) Hypertension Conclusion/Plan: Patient has history of hypertension which could have lead to CHF and pulm HTN Plan: Echo pending Continue home BP meds Monitor BP (7) Thyroid nodule Conclusion/Plan: Thyroid ultrasound done recs biopsy of the nodule Patient will need outpatient biopsy TSH is normal (8) Prophylactic use of low molecular weight heparin for venous thromboembolism Conclusion/Plan: Place on lovenox while hospitalized for DVT prophylaxis - Current Meds Current Meds: Current Medications Generic Name Dose Route Start Last Admin Trade Name Freq PRN Reason Stop Dose Admin Calcium Carbonate/Glycine 1,000 mg 02/09/17 09:00 02/09/17 09:26 Tums PO 1,000 mg DAILY TED Administration Chlorhexidine Gluconate 15 ml 02/08/17 21:00 02/09/17 10:14 Peridex PO 15 ml BID TED Administration Cholecalciferol 5,000 unit 02/09/17 09:00 02/09/17 09:28 Vitamin D3 PO 5,000 unit DAILY TED Administration Enoxaparin Sodium 40 mg 02/09/17 09:00 02/09/17 10:15 Lovenox SUBQ Not Given DAILY TED Famotidine 20 mg 02/09/17 09:00 02/09/17 11:09 Pepcid PO Not Given DAILY TED Furosemide 40 mg 02/08/17 21:00 02/09/17 09:28 Lasix Inj 40 Mg Vial IVP 40 mg BID TED Administration Losartan Potassium 50 mg 02/09/17 09:00 02/09/17 11:08 Cozaar PO Not Given DAILY TED Methylprednisolone 40 mg 02/08/17 19:00 02/09/17 14:50 Solu-Medrol (40mg Vial) IVP 40 mg TID TED Administration Multivitamins/Minerals 1 tab 02/09/17 08:00 02/09/17 09:27 Theragran M PO 1 tab DAILYWM TED Administration [id number] Ethyl Esters 1 gm 02/08/17 21:00 02/09/17 09:26 Lovaza PO 1 gm BID TED Administration Oxycodone HCl 5 mg 02/08/17 18:09 02/09/17 13:02 Roxicodone PO 5 mg Q4HR PRN Administration Pain 5 to 7 Cyanocobalamin ( 1 each 02/09/17 09:00 02/09/17 12:13 Vitamin B-12) [ PO Not Given Vitamin B-12] 5,000 DAILY TED Mcg Polyethylene Glycol 17 gm 02/09/17 09:00 02/09/17 11:10 Miralax PO Not Given DAILY TED Sodium Chloride 10 ml 02/08/17 18:09 02/09/17 14:53 Normal Saline Flush 0.9% IVP 10 ml PRN PRN Administration NEEDED PER PROVIDER ORDERS Sodium Chloride 10 ml 02/08/17 22:00 02/09/17 06:40 Normal Saline Flush 0.9% IVP 10 ml Q8HR TED Administration - Lab Result Fish Bone Diagrams: 02/09/17 04:46 02/09/17 04:46 - Diagnostic Imaging Results Diagnostic Imaging Results: Final report reviewed - Additional Planning Condition/Complexity: Guarded My Orders: My Active Orders 02/10/17 09:00 ABG - ARTERIAL BLOOD GAS [BG] DAILY 02/11/17 09:00 ABG - ARTERIAL BLOOD GAS [BG] DAILY 02/12/17 09:00 ABG - ARTERIAL BLOOD GAS [BG] DAILY 02/13/17 09:00 ABG - ARTERIAL BLOOD GAS [BG] DAILY 02/14/17 09:00 ABG - ARTERIAL BLOOD GAS [BG] DAILY 02/08/17 18:44 BiPAP/CPAP [RC] .ONCE Elevate HOB 30 - 45 degrees [RC] .ONCE Oral Care - Nursing [RC] Q2HR 02/08/17 21:00 Chlorhexidine [Peridex] 15 ml PO BID 02/09/17 09:47 Arterial Blood Gases - RT [RC] .ONCE 02/09/17 12:32 RT [Nebulizer/MDI Tx.] [RC] QID 02/09/17 13:16 Wound Care - MAC [RC] .ONCE 02/09/17 14:00 Patient Own Med [Patient Own Medication] 1 each PO DAILY Plan Discussed with:: Patient Time Spent: 31-60 minutes Subjective - Subjective Patient Reports: Back Pain (6/10 but tolerable for her), Cough, Shortness of Breath (Feels better but still short of breath.), Other (No fevers or chills.) Nursing Reports: No Complaints Objective Vital Signs: Vital Signs - 24 hr 02/08/17 02/08/17 02/08/17 18:20 18:57 19:05 Temperature Heart Rate 78 78 Heart Rate [ Monitoring electrodes] Respiratory 20 21 Rate Blood Pressure 136/84 H Blood Pressure [Left Brachial artery] O2 Saturation 92 95 02/08/17 02/08/17 02/08/17 20:00 21:00 21:57 Temperature 36.8 C 36.8 C Heart Rate Heart Rate [ 82 89 84 Monitoring electrodes] Respiratory 18 18 16 Rate Blood Pressure Blood Pressure 120/65 133/85 H 100/48 L [Left Brachial artery] O2 Saturation 94 92 90 L 02/08/17 02/09/17 02/09/17 23:00 00:00 01:00 Temperature 36.8 C Heart Rate Heart Rate [ 77 80 72 Monitoring electrodes] Respiratory 15 21 21 Rate Blood Pressure Blood Pressure 97/50 L 117/57 L 113/54 L [Left Brachial artery] O2 Saturation 93 95 92 02/09/17 02/09/17 02/09/17 02:00 03:00 04:00 Temperature 36.7 C Heart Rate Heart Rate [ 74 74 76 Monitoring electrodes] Respiratory 20 21 18 Rate Blood Pressure Blood Pressure 119/52 L 121/56 L 119/54 L [Left Brachial artery] O2 Saturation 91 L 94 95 02/09/17 02/09/17 02/09/17 05:00 06:00 07:00 Temperature Heart Rate Heart Rate [ 74 76 77 Monitoring electrodes] Respiratory 17 17 18 Rate Blood Pressure Blood Pressure 116/65 115/58 L 108/57 L [Left Brachial artery] O2 Saturation 95 93 92 02/09/17 02/09/17 02/09/17 08:00 09:00 10:00 Temperature 36.6 C Heart Rate Heart Rate [ 81 87 86 Monitoring electrodes] Respiratory 23 27 H 27 H Rate Blood Pressure Blood Pressure 140/77 H 118/54 L 112/50 L [Left Brachial artery] O2 Saturation 94 93 89 L 02/09/17 02/09/17 02/09/17 11:00 12:00 13:00 Temperature 37.4 C Heart Rate Heart Rate [ 84 83 87 Monitoring electrodes] Respiratory 20 21 16 Rate Blood Pressure Blood Pressure 121/107 H 112/48 L 104/58 L [Left Brachial artery] O2 Saturation 91 L 90 L 92 02/09/17 02/09/17 02/09/17 14:00 15:00 16:00 Temperature 36.4 C L Heart Rate Heart Rate [ 84 85 80 Monitoring electrodes] Respiratory 20 21 24 Rate Blood Pressure Blood Pressure 108/78 129/54 L 101/56 L [Left Brachial artery] O2 Saturation 93 Oxygen O2 Source Room air I&O (Last 24 Hrs): Intake and Output Totals x24h 02/07/17 02/08/17 02/09/17 23:59 23:59 23:59 Intake Total 200 950 Output Total 400 2565 Balance -200 -1615 General: Alert, Oriented x3, Cooperative, Mild distress (COnverstational dyspnea ) HEENT: Atraumatic, PERRLA, EOMI, Mucous membr. moist/pink Neck: Supple, No JVD, No thyromegaly, +2 carotid pulse wo bruit, No LAD Lymphatic: no adenopathy Neuro: Alert, Non Focal, CN 2-12 Grossly Intact, Oriented Times 3 Cardiovascular: Regular rate, Normal S1, Normal S2, No murmurs Respiratory: Chest non-tender, Wheezes, Other (Decreased bilaterally, tachypnic) Abdomen: Normal bowel sounds, Soft, No tenderness, No hepatospenomegaly Extremities: No clubbing, No cyanosis, Normal pulses, Other (Bilateral venous stasus changes, with edema) Comments/Notes: Hyperpigmented LEs - Results Results: Laboratory Results WBC 4.3 x10^3/uL (4.8-10.8) L 02/09/17 04:46 RBC 5.27 10^6/uL (4.20-5.40) 02/09/17 04:46 Hgb 12.7 g/dL (12.0-16.0) 02/09/17 04:46 Hct 42.1 % (37.0-47.0) 02/09/17 04:46 MCV 80.0 fL (81.0-99.0) L 02/09/17 04:46 MCH 24.2 pg (27.0-31.0) L 02/09/17 04:46 MCHC 30.3 g/dL (32.0-36.0) L 02/09/17 04:46 RDW 17.2 % (12.0-15.0) H 02/09/17 04:46 Plt Count 225 10^3/uL (130-450) 02/09/17 04:46 MPV 7.7 fL (7.9-10.8) L 02/09/17 04:46 Neut # 4.1 10^3/uL (1.5-6.6) 02/09/17 04:46 Lymph # 0.2 10^3/uL (1.5-3.5) L 02/09/17 04:46 [place] # 0.0 10^3/uL (0.0-1.0) 02/09/17 04:46 Eos # 0.0 10^3/uL (0.0-0.7) 02/09/17 04:46 Baso # 0.0 10^3/uL (0.0-0.1) 02/09/17 04:46 Absolute Nucleated RBC 0.00 x10^3/uL 02/09/17 04:46 Nucleated RBC % 0.1 /100WBC 02/09/17 04:46 D-Dimer 689.4 ng/mL (200.0-255.0) H 02/08/17 15:05 Bld Gas Analysis Time 0948 02/09/17 09:46 Sample Site LEFT RADIAL 02/09/17 09:46 ABG pH 7.32 (7.35-7.45) L 02/09/17 09:46 ABG pCO2 67 mmHg (34-45) H* 02/09/17 09:46 ABG pO2 65 mmHg (80-100) L 02/09/17 09:46 ABG HCO3 33.7 mmol/L (22.0-26.0) H 02/09/17 09:46 ABG Total CO2 35.8 MMOL/L (21.0-29.0) H 02/09/17 09:46 ABG O2 Saturation 92 % (94-98) L 02/09/17 09:46 ABG Oximetry Spot Check 92 % 02/09/17 00:55 ABG Base Excess 5.4 mmol/L (-2.0-3.0) H 02/09/17 09:46 Jose Martin Test UNKNOWN 02/09/17 09:46 O2 Delivery Device NASAL CANNULA 02/09/17 09:46 O2 Liters/Min 1.50 LPM 02/09/17 09:46 FiO2 35.00 02/09/17 02:30 EPAP 6 cmH2O 02/09/17 02:30 IPAP 16 cmH2O 02/09/17 02:30 Sodium 143 mmol/L (135-145) 02/09/17 04:46 Potassium 4.7 mmol/L (3.5-5.0) 02/09/17 04:46 Chloride 97 mmol/L (101-111) L 02/09/17 04:46 Carbon Dioxide 38 mmol/L (21-32) H 02/09/17 04:46 Anion Gap 7.0 (6-13) 02/09/17 04:46 BUN 26 mg/dL (6-20) H 02/09/17 04:46 Creatinine 0.6 mg/dL (0.4-1.0) 02/09/17 04:46 Estimated GFR (MDRD) 97 (>89) 02/09/17 04:46 Glucose 160 mg/dL (70-100) H 02/09/17 04:46 Calcium 9.0 mg/dL (8.5-10.3) 02/09/17 04:46 Magnesium 2.2 mg/dL (1.7-2.8) 02/09/17 04:46 Total Bilirubin 0.4 mg/dL (0.2-1.0) 02/09/17 04:46 AST 18 IU/L (10-42) 02/09/17 04:46 ALT 22 IU/L (10-60) 02/09/17 04:46 Alkaline Phosphatase 60 IU/L (42-121) 02/09/17 04:46 Troponin I < 0.04 ng/mL (<0.49) 02/09/17 04:46 B-Natriuretic Peptide 620 pg/mL (5-100) H 02/09/17 04:46 Total Protein 6.7 g/dL (6.7-8.2) 02/09/17 04:46 Albumin 3.1 g/dL (3.2-5.5) L 02/09/17 04:46 Globulin 3.6 g/dL (2.1-4.2) 02/09/17 04:46 Albumin/Globulin Ratio 0.9 (1.0-2.2) L 02/09/17 04:46 TSH 0.52 uIU/mL (0.34-5.60) 02/09/17 04:46 Free T4 0.91 ng/dL (0.58-1.64) 02/09/17 04:46 Thyroxine (T4) 6.44 ug/dL (6.09-12.23) 02/09/17 04:46 Free T3 pg/mL 2.16 pg/mL (2.5-3.9) L 02/09/17 04:46 Total T3 0.52 ng/mL (0.87-1.78) L 02/09/17 04:46
[2017-02-09] MEDS: POTASSIUM GLUCONATE PO SCH (17:12)
[2017-02-10] MEDS: oxyCODONE 5 MG TABLET PO PRN ×3 (05:36→23:46)
[2017-02-10] MEDS: methylPREDNISolone SUCCINATE 40 MG/ML VIAL IVP SCH (05:37)
[2017-02-10] MEDS: SODIUM CHLORIDE FLUSH 0.9% 10 ML SYRINGE IVP SCH ×3 (05:40→21:23)
[2017-02-10 05:45] LABS: BASOPHILS % (AUTO) 0.1 %; HGB - HEMOGLOBIN 12.8 g/dL (12.0-16.0); LYMPHOCYTES # (AUTO) 0.3 10^3/uL (1.5-3.5); MEAN CORPUSCULAR HEMOGLOBIN 24.5 pg (27.0-31.0); MEAN CORPUSCULAR HGB CONC 30.9 g/dL (32.0-36.0); MEAN CORPUSCULAR VOLUME 79.4 fL (81.0-99.0); MEAN PLATELET VOLUME 7.4 fL (7.9-10.8); MONOCYTES # (AUTO) 0.2 10^3/uL (0.0-1.0); MONOCYTES % (AUTO) 3.1 %; NEUTROPHILS # (AUTO) 6.2 10^3/uL (1.5-6.6); NEUTROPHILS % (AUTO) 91.8 %; PLT - PLATELET COUNT 232 10^3/uL (130-450); RED BLOOD COUNT 5.24 10^6/uL (4.20-5.40); RED CELL DISTRIBUTION WIDTH 16.8 % (12.0-15.0); WHITE BLOOD COUNT 6.8 x10^3/uL (4.8-10.8)
[2017-02-10 05:50] LABS: ALBUMIN/GLOBULIN RATIO 0.9 (1.0-2.2); BILIRUBIN,TOTAL 0.5 mg/dL (0.2-1.0); CALCIUM 8.4 mg/dL (8.5-10.3); CREATININE 0.6 mg/dL (0.4-1.0); TOTAL PROTEIN 6.4 g/dL (6.7-8.2)
[2017-02-10] MEDS: IPRATROPIUM/ALBUTEROL 3 ML NEB INH PRN (07:50)
[2017-02-10] MEDS: CHOLECALCIFEROL 5,000 UNIT CAPSULE PO SCH (08:22)
[2017-02-10] MEDS: MULTIVITAMIN W/MINERALS TABLET PO SCH (08:23)
[2017-02-10] MEDS: LOSARTAN 50 MG TABLET PO SCH (08:23)
[2017-02-10] MEDS: OMEGA-3 ACID ETHYL ESTERS 1 GM CAPSULE PO SCH ×2 (08:24→21:23)
[2017-02-10] MEDS: FAMOTIDINE 20 MG TABLET PO SCH ×2 (08:24→17:32)
[2017-02-10] MEDS: POLYETHYLENE GLYCOL 3350 17 GM PACKET PO SCH (08:25)
[2017-02-10] MEDS: CALCIUM CARBONATE CHEW 500 MG TABLET PO SCH (08:32)
[2017-02-10] MEDS: ENOXAPARIN 40 MG/0.4 ML SYRINGE SUBQ SCH (08:32)
[2017-02-10] MEDS: FUROSEMIDE 40 MG/4 ML VIAL IVP SCH ×2 (08:32→16:52)
[2017-02-10] MEDS: CHLORHEXIDINE GLUCONATE 15 ML UDC PO SCH ×2 (08:32→21:23)
[2017-02-10] MEDS: Cyanocobalamin (Vitamin B-12) [Vitamin B-12] 5,000 MCG PO SCH (08:36)
[2017-02-10] MEDS: POTASSIUM GLUCONATE PO SCH (10:38)
[2017-02-10] MEDS: methylPREDNISolone 4 MG TABLET PO SCH (11:02)
[2017-02-10] MEDS: SODIUM CHLORIDE FLUSH 0.9% 10 ML SYRINGE IVP PRN (16:52)
--- NOTE | 2017-02-10 18:36 | PROVIDER PROGRESS NOTE ---
Assessment/Plan - Problem List (1) Acute respiratory failure with hypoxia and hypercapnia Assessment/Plan: Echo pending tomorrow to assess for LVEF and diastolic LV function Pt has "never had CHF before". I explained to her that this may be a new Dx if Echo shows it teaching was started by RN Also continue inhalers and steroids (2) Obesity Qualifiers: Body mass index: BMI 40.0-44.9 Assessment/Plan: PT will be requested tomorrow (3) Thyroid nodule Assessment/Plan: Will need outpt F/U - Current Meds Current Meds: Current Medications Generic Name Dose Route Start Last Admin Trade Name Freq PRN Reason Stop Dose Admin Albuterol/Ipratropium 3 ml 02/08/17 18:09 02/10/17 07:50 Duoneb INH 3 ml Q4HR PRN Administration Wheezing Calcium Carbonate/Glycine 1,000 mg 02/09/17 09:00 02/10/17 08:32 Tums PO 1,000 mg DAILY TED Administration Chlorhexidine Gluconate 15 ml 02/08/17 21:00 02/10/17 08:32 Peridex PO 15 ml BID TED Administration Cholecalciferol 5,000 unit 02/09/17 09:00 02/10/17 08:22 Vitamin D3 PO 5,000 unit DAILY TED Administration Enoxaparin Sodium 40 mg 02/09/17 09:00 02/10/17 08:32 Lovenox SUBQ 40 mg DAILY TED Administration Famotidine 20 mg 02/09/17 09:00 02/10/17 17:32 Pepcid PO 20 mg DAILY TED Administration Furosemide 40 mg 02/08/17 21:00 02/10/17 16:52 Lasix Inj 40 Mg Vial IVP 40 mg BID TED Administration Losartan Potassium 50 mg 02/09/17 09:00 02/10/17 08:23 Cozaar PO 50 mg DAILY TED Administration Methylprednisolone 16 mg 02/10/17 11:00 02/10/17 11:02 Medrol PO 16 mg DAILYWM TED Administration Multivitamins/Minerals 1 tab 02/09/17 08:00 02/10/17 08:23 Theragran M PO 1 tab DAILYWM TED Administration [id number]-[id number] Ethyl Esters 1 gm 02/08/17 21:00 02/10/17 08:24 Lovaza PO 1 gm BID TED Administration Oxycodone HCl 5 mg 02/08/17 18:09 02/10/17 17:14 Roxicodone PO 5 mg Q4HR PRN Administration Pain 5 to 7 Cyanocobalamin ( 1 each 02/09/17 09:00 02/10/17 08:36 Vitamin B-12) [ PO Not Given Vitamin B-12] 5,000 DAILY TED Mcg Potassium Gluconate 1 each 02/09/17 17:00 02/10/17 10:38 [Potassium Gluconate PO Not Given ] 5 Meq DAILY TED Polyethylene Glycol 17 gm 02/09/17 09:00 02/10/17 08:25 Miralax PO 17 gm DAILY TED Administration Sodium Chloride 10 ml 02/08/17 18:09 02/10/17 16:52 Normal Saline Flush 0.9% IVP 10 ml PRN PRN Administration NEEDED PER PROVIDER ORDERS Sodium Chloride 10 ml 02/08/17 22:00 02/10/17 08:32 Normal Saline Flush 0.9% IVP 20 ml Q8HR TED Administration - Lab Result Fish Bone Diagrams: 02/10/17 04:55 02/10/17 04:55 - Additional Planning My Orders: My Active Orders 02/10/17 11:00 methylPREDNISolone [Medrol] 16 mg PO DAILYWM Subjective - Subjective Patient Reports: Feeling Better, Resting Comfortably Nursing Reports: Other (Too weak to try getting OOB or even dangling at edge of bed) Objective Vital Signs: Vital Signs - 24 hr 02/09/17 02/09/17 02/09/17 18:56 19:00 20:00 Temperature 36.4 C L Heart Rate Heart Rate [ 80 85 82 Monitoring electrodes] Respiratory 21 19 17 Rate Blood Pressure 132/57 H 105/93 H 125/59 L [Left Brachial artery] O2 Saturation 91 L 82 L 02/09/17 02/09/17 02/10/17 22:00 23:00 00:00 Temperature 36.4 C L Heart Rate Heart Rate [ 81 83 91 Monitoring electrodes] Respiratory 18 23 18 Rate Blood Pressure 116/46 L 115/96 H 138/60 H [Left Brachial artery] O2 Saturation 94 93 93 02/10/17 02/10/17 02/10/17 01:00 02:00 03:00 Temperature Heart Rate Heart Rate [ 75 77 80 Monitoring electrodes] Respiratory 18 24 17 Rate Blood Pressure 121/56 L 131/54 H 102/44 L [Left Brachial artery] O2 Saturation 95 94 91 L 02/10/17 02/10/17 02/10/17 04:00 05:00 06:00 Temperature 36.4 C L Heart Rate Heart Rate [ 83 76 74 Monitoring electrodes] Respiratory 17 21 21 Rate Blood Pressure 121/51 L 122/58 L 131/76 H [Left Brachial artery] O2 Saturation 95 94 94 02/10/17 02/10/17 02/10/17 06:45 07:50 08:52 Temperature 36.7 C Heart Rate 68 Heart Rate [ 72 76 Monitoring electrodes] Respiratory 21 17 20 Rate Blood Pressure 123/68 134/65 H [Left Brachial artery] O2 Saturation 94 95 02/10/17 02/10/17 02/10/17 09:00 10:15 11:23 Temperature Heart Rate Heart Rate [ 100 76 87 Monitoring electrodes] Respiratory 18 22 20 Rate Blood Pressure 133/74 H 137/61 H 139/61 H [Left Brachial artery] O2 Saturation 93 91 L 91 L 02/10/17 02/10/17 02/10/17 12:00 13:00 14:00 Temperature 36.3 C L Heart Rate Heart Rate [ 85 80 83 Monitoring electrodes] Respiratory 16 22 20 Rate Blood Pressure 139/61 H 114/47 L 133/63 H [Left Brachial artery] O2 Saturation 92 90 L 90 L 02/10/17 02/10/17 02/10/17 15:00 16:00 16:51 Temperature 36.8 C Heart Rate Heart Rate [ 78 82 Monitoring electrodes] Respiratory 14 18 Rate Blood Pressure 105/48 L 126/59 L [Left Brachial artery] O2 Saturation 94 91 L 02/10/17 17:00 Temperature Heart Rate Heart Rate [ 79 Monitoring electrodes] Respiratory 19 Rate Blood Pressure 124/91 H [Left Brachial artery] O2 Saturation 94 Oxygen O2 Source Nasal cannula I&O (Last 24 Hrs): Intake and Output Totals x24h 02/08/17 02/09/17 02/10/17 23:59 23:59 23:59 Intake Total 200 1610 960 Output Total 400 3465 1175 Balance -200 -1855 -215 General: Alert, Oriented x3 HEENT: Mucous membr. moist/pink Neck: No JVD Neuro: CN 2-12 Grossly Intact Cardiovascular: Regular rate, No murmurs Respiratory: No respiratory distress Abdomen: Soft Extremities: No edema - Results Results: Laboratory Results WBC 6.8 x10^3/uL (4.8-10.8) 02/10/17 04:55 RBC 5.24 10^6/uL (4.20-5.40) 02/10/17 04:55 Hgb 12.8 g/dL (12.0-16.0) 02/10/17 04:55 Hct 41.6 % (37.0-47.0) 02/10/17 04:55 MCV 79.4 fL (81.0-99.0) L 02/10/17 04:55 MCH 24.5 pg (27.0-31.0) L 02/10/17 04:55 MCHC 30.9 g/dL (32.0-36.0) L 02/10/17 04:55 RDW 16.8 % (12.0-15.0) H 02/10/17 04:55 Plt Count 232 10^3/uL (130-450) 02/10/17 04:55 MPV 7.4 fL (7.9-10.8) L 02/10/17 04:55 Neut # 6.2 10^3/uL (1.5-6.6) 02/10/17 04:55 Lymph # 0.3 10^3/uL (1.5-3.5) L 02/10/17 04:55 Jay # 0.2 10^3/uL (0.0-1.0) 02/10/17 04:55 Eos # 0.0 10^3/uL (0.0-0.7) 02/10/17 04:55 Baso # 0.0 10^3/uL (0.0-0.1) 02/10/17 04:55 Absolute Nucleated RBC 0.00 x10^3/uL 02/10/17 04:55 Nucleated RBC % 0.0 /100WBC 02/10/17 04:55 D-Dimer 689.4 ng/mL (200.0-255.0) H 02/08/17 15:05 Bld Gas Analysis Time 0948 02/09/17 09:46 Sample Site LEFT RADIAL 02/09/17 09:46 ABG pH 7.32 (7.35-7.45) L 02/09/17 09:46 ABG pCO2 67 mmHg (34-45) H* 02/09/17 09:46 ABG pO2 65 mmHg (80-100) L 02/09/17 09:46 ABG HCO3 33.7 mmol/L (22.0-26.0) H 02/09/17 09:46 ABG Total CO2 35.8 MMOL/L (21.0-29.0) H 02/09/17 09:46 ABG O2 Saturation 92 % (94-98) L 02/09/17 09:46 ABG Oximetry Spot Check 92 % 02/09/17 00:55 ABG Base Excess 5.4 mmol/L (-2.0-3.0) H 02/09/17 09:46 Jose Martin Test UNKNOWN 02/09/17 09:46 O2 Delivery Device NASAL CANNULA 02/09/17 09:46 O2 Liters/Min 1.50 LPM 02/09/17 09:46 FiO2 35.00 02/09/17 02:30 EPAP 6 cmH2O 02/09/17 02:30 IPAP 16 cmH2O 02/09/17 02:30 Sodium 140 mmol/L (135-145) 02/10/17 04:55 Potassium 4.1 mmol/L (3.5-5.0) 02/10/17 04:55 Chloride 94 mmol/L (101-111) L 02/10/17 04:55 Carbon Dioxide 41 mmol/L (21-32) H* 02/10/17 04:55 Anion Gap 5.0 (6-13) L 02/10/17 04:55 BUN 31 mg/dL (6-20) H 02/10/17 04:55 Creatinine 0.6 mg/dL (0.4-1.0) 02/10/17 04:55 Estimated GFR (MDRD) 97 (>89) 02/10/17 04:55 Glucose 150 mg/dL (70-100) H 02/10/17 04:55 Calcium 8.4 mg/dL (8.5-10.3) L 02/10/17 04:55 Magnesium 2.0 mg/dL (1.7-2.8) 02/10/17 04:55 Total Bilirubin 0.5 mg/dL (0.2-1.0) 02/10/17 04:55 AST 22 IU/L (10-42) 02/10/17 04:55 ALT 26 IU/L (10-60) 02/10/17 04:55 Alkaline Phosphatase 54 IU/L (42-121) 02/10/17 04:55 Troponin I 0.04 ng/mL (<0.49) 02/10/17 04:55 B-Natriuretic Peptide 507 pg/mL (5-100) H 02/10/17 04:55 Total Protein 6.4 g/dL (6.7-8.2) L 02/10/17 04:55 Albumin 3.0 g/dL (3.2-5.5) L 02/10/17 04:55 Globulin 3.4 g/dL (2.1-4.2) 02/10/17 04:55 Albumin/Globulin Ratio 0.9 (1.0-2.2) L 02/10/17 04:55 TSH 0.52 uIU/mL (0.34-5.60) 02/09/17 04:46 Free T4 0.91 ng/dL (0.58-1.64) 02/09/17 04:46 Thyroxine (T4) 6.44 ug/dL (6.09-12.23) 02/09/17 04:46 Free T3 pg/mL 2.16 pg/mL (2.5-3.9) L 02/09/17 04:46 Total T3 0.52 ng/mL (0.87-1.78) L 02/09/17 04:46
[2017-02-11 05:22] LABS: BASOPHILS % (AUTO) 0.1 %; EOSINOPHILS % (AUTO) 0.2 %; HGB - HEMOGLOBIN 13.4 g/dL (12.0-16.0); LYMPHOCYTES % (AUTO) 12.9 %; MEAN CORPUSCULAR HEMOGLOBIN 23.9 pg (27.0-31.0); MEAN CORPUSCULAR HGB CONC 30.1 g/dL (32.0-36.0); MEAN CORPUSCULAR VOLUME 79.4 fL (81.0-99.0); MEAN PLATELET VOLUME 7.5 fL (7.9-10.8); MONOCYTES # (AUTO) 0.6 10^3/uL (0.0-1.0); MONOCYTES % (AUTO) 7.8 %; NEUTROPHILS # (AUTO) 6.2 10^3/uL (1.5-6.6); PLT - PLATELET COUNT 229 10^3/uL (130-450); RED BLOOD COUNT 5.58 10^6/uL (4.20-5.40); RED CELL DISTRIBUTION WIDTH 17.4 % (12.0-15.0); WHITE BLOOD COUNT 7.9 x10^3/uL (4.8-10.8)
[2017-02-11 05:43] LABS: BILIRUBIN,TOTAL 0.3 mg/dL (0.2-1.0); CALCIUM 8.5 mg/dL (8.5-10.3); CREATININE 0.5 mg/dL (0.4-1.0); TOTAL PROTEIN 6.1 g/dL (6.7-8.2)
[2017-02-11] MEDS: SODIUM CHLORIDE FLUSH 0.9% 10 ML SYRINGE IVP SCH ×3 (06:35→21:35)
[2017-02-11] MEDS: oxyCODONE 5 MG TABLET PO PRN ×2 (06:39→18:19)
[2017-02-11] MEDS: methylPREDNISolone 4 MG TABLET PO SCH (09:02)
[2017-02-11] MEDS: MULTIVITAMIN W/MINERALS TABLET PO SCH (09:03)
[2017-02-11] MEDS: CALCIUM CARBONATE CHEW 500 MG TABLET PO SCH (09:04)
[2017-02-11] MEDS: OMEGA-3 ACID ETHYL ESTERS 1 GM CAPSULE PO SCH ×2 (09:05→21:34)
[2017-02-11] MEDS: CHOLECALCIFEROL 5,000 UNIT CAPSULE PO SCH (09:05)
[2017-02-11] MEDS: FUROSEMIDE 40 MG/4 ML VIAL IVP SCH ×3 (09:06→21:35)
[2017-02-11] MEDS: ENOXAPARIN 40 MG/0.4 ML SYRINGE SUBQ SCH (09:06)
[2017-02-11] MEDS: FAMOTIDINE 20 MG TABLET PO SCH (09:06)
[2017-02-11] MEDS: POTASSIUM GLUCONATE PO SCH (09:07)
[2017-02-11] MEDS: LOSARTAN 50 MG TABLET PO SCH ×3 (09:13→21:34)
[2017-02-11] MEDS: CHLORHEXIDINE GLUCONATE 15 ML UDC PO SCH ×2 (09:14→21:35)
[2017-02-11] MEDS: Cyanocobalamin (Vitamin B-12) [Vitamin B-12] 5,000 MCG PO SCH (09:14)
[2017-02-11] MEDS: POLYETHYLENE GLYCOL 3350 17 GM PACKET PO SCH (09:14)
--- NOTE | 2017-02-11 18:07 | PROVIDER PROGRESS NOTE ---
Assessment/Plan - Problem List (1) Acute respiratory failure with hypoxia and hypercapnia Assessment/Plan: Pt is 5L neg fluid balance She still desaturates at rest on R.A. I suspect Pt has sleep apnea and/or COPD which has led to Cor Pulmonale I discussed her diagnosis of "heart failure and low oxygen" witth the patient, as yesterday she told nurse she "does not have heart failure" Continue supplemental O2 and inhalers/Medrol Recheck CXR tomorrow (2) Thyroid nodule Assessment/Plan: Out pt F/U planned (3) PVD (peripheral vascular disease) Assessment/Plan: [facility] [place] RN saw Pt today. The pt has now been taken care of by a Vascular Surgeon out of town and a leg procedure was scheduled for 02/13/17 Shelly boot and STEFF wraps were recommended as per her Vadcular surgeon but postponement of outpt procedure (4) Weakness Assessment/Plan: Pt has not been OOB for at least a week. Raghu order PT to start by getting OOB with a sling/ ceiling lift - Current Meds Current Meds: Current Medications Generic Name Dose Route Start Last Admin Trade Name Freq PRN Reason Stop Dose Admin Albuterol/Ipratropium 3 ml 02/08/17 18:09 02/10/17 07:50 Duoneb INH 3 ml Q4HR PRN Administration Wheezing Calcium Carbonate/Glycine 1,000 mg 02/09/17 09:00 02/11/17 09:04 Tums PO 1,000 mg DAILY TED Administration Chlorhexidine Gluconate 15 ml 02/08/17 21:00 02/11/17 09:14 Peridex PO Not Given BID TED Cholecalciferol 5,000 unit 02/09/17 09:00 02/11/17 09:05 Vitamin D3 PO 5,000 unit DAILY TED Administration Enoxaparin Sodium 40 mg 02/09/17 09:00 02/11/17 09:06 Lovenox SUBQ 40 mg DAILY TED Administration Famotidine 20 mg 02/09/17 09:00 02/11/17 09:06 Pepcid PO 20 mg DAILY TED Administration Furosemide 40 mg 02/11/17 14:00 02/11/17 14:05 Lasix Inj 40 Mg Vial IVP 40 mg TID TED Administration Multivitamins/Minerals 1 tab 02/09/17 08:00 02/11/17 09:03 Theragran M PO 1 tab DAILYWM TED Administration [id number] Ethyl Esters 1 gm 02/08/17 21:00 02/11/17 09:05 Lovaza PO 1 gm BID TED Administration Oxycodone HCl 5 mg 02/08/17 18:09 02/11/17 06:39 Roxicodone PO 5 mg Q4HR PRN Administration Pain 5 to 7 Cyanocobalamin ( 1 each 02/09/17 09:00 02/11/17 09:14 Vitamin B-12) [ PO Not Given Vitamin B-12] 5,000 DAILY TED Mcg Potassium Gluconate 1 each 02/09/17 17:00 02/11/17 09:07 [Potassium Gluconate PO 1 each ] 5 Meq DAILY TED Administration Polyethylene Glycol 17 gm 02/09/17 09:00 02/11/17 09:14 Miralax PO 17 gm DAILY TED Administration Sodium Chloride 10 ml 02/08/17 18:09 02/10/17 16:52 Normal Saline Flush 0.9% IVP 10 ml PRN PRN Administration NEEDED PER PROVIDER ORDERS Sodium Chloride 10 ml 02/08/17 22:00 02/11/17 14:05 Normal Saline Flush 0.9% IVP 20 ml Q8HR TED Administration - Lab Result Fish Bone Diagrams: 02/11/17 04:35 02/11/17 04:35 - Additional Planning My Orders: My Active Orders 02/11/17 Wound Consult MAC [MAC] Routine 02/11/17 12:24 methylPREDNISolone [Medrol] 12 mg PO DAILYWM 02/11/17 14:00 FUROSEMIDE INJ 40mg VIAL [LASIX INJ 40 mg VIAL] 40 mg IVP TID 02/11/17 14:30 Daily Dressing Change [RC] DAILY Subjective - Subjective Patient Reports: Other Nursing Reports: Shortness of Breath (O2 sat 88-90% on 2L O2 nc) Objective Vital Signs: Vital Signs - 24 hr 02/10/17 02/10/17 02/10/17 18:55 19:03 19:55 Temperature 36.6 C Heart Rate 78 Heart Rate [ 78 80 Monitoring electrodes] Respiratory 18 19 16 Rate Blood Pressure 115/64 [Left Radial artery] O2 Saturation 96 96 02/10/17 02/10/17 02/10/17 21:00 22:00 23:00 Temperature Heart Rate Heart Rate [ 79 77 76 Monitoring electrodes] Respiratory 16 16 15 Rate Blood Pressure 107/55 L 104/60 106/55 L [Left Radial artery] O2 Saturation 93 96 95 02/11/17 02/11/17 02/11/17 00:00 01:00 02:00 Temperature Heart Rate Heart Rate [ 75 73 78 Monitoring electrodes] Respiratory 22 17 22 Rate Blood Pressure 83/70 L 124/76 140/79 H [Left Radial artery] O2 Saturation 97 95 02/11/17 02/11/17 02/11/17 03:00 04:00 05:00 Temperature Heart Rate Heart Rate [ 78 81 77 Monitoring electrodes] Respiratory 18 20 15 Rate Blood Pressure 108/75 163/75 H 112/58 L [Left Radial artery] O2 Saturation 92 93 02/11/17 02/11/17 02/11/17 06:00 07:00 07:25 Temperature Heart Rate 74 Heart Rate [ 72 78 Monitoring electrodes] Respiratory 22 21 21 Rate Blood Pressure 130/69 125/78 [Left Radial artery] O2 Saturation 94 100 02/11/17 02/11/17 02/11/17 08:14 09:36 10:38 Temperature 36.7 C Heart Rate Heart Rate [ 78 81 82 Monitoring electrodes] Respiratory 18 20 Rate Blood Pressure 117/74 [Left Radial artery] O2 Saturation 93 95 92 02/11/17 02/11/17 02/11/17 11:03 12:00 13:24 Temperature 36.6 C Heart Rate Heart Rate [ 82 80 85 Monitoring electrodes] Respiratory 18 20 20 Rate Blood Pressure 115/94 H 141/80 H [Left Radial artery] O2 Saturation 92 92 92 02/11/17 16:09 Temperature 36.9 C Heart Rate Heart Rate [ 76 Monitoring electrodes] Respiratory 20 Rate Blood Pressure 125/57 L [Left Radial artery] O2 Saturation 94 Oxygen O2 Source Nasal cannula I&O (Last 24 Hrs): Intake and Output Totals x24h 02/09/17 02/10/17 02/11/17 23:59 23:59 23:59 Intake Total 1610 1080 1180 Output Total 9074 7463 7906 Balance -1919 -995 -8140 General: Alert, Other (Flight of ideas) HEENT: Mucous membr. moist/pink Neck: Supple Neuro: Non Focal Cardiovascular: Regular rate Respiratory: No respiratory distress Abdomen: Soft Extremities: Other (1+ edema) - Results Results: Laboratory Results WBC 7.9 x10^3/uL (4.8-10.8) 02/11/17 04:35 RBC 5.58 10^6/uL (4.20-5.40) H 02/11/17 04:35 Hgb 13.4 g/dL (12.0-16.0) 02/11/17 04:35 Hct 44.3 % (37.0-47.0) 02/11/17 04:35 MCV 79.4 fL (81.0-99.0) L 02/11/17 04:35 MCH 23.9 pg (27.0-31.0) L 02/11/17 04:35 MCHC 30.1 g/dL (32.0-36.0) L 02/11/17 04:35 RDW 17.4 % (12.0-15.0) H 02/11/17 04:35 Plt Count 229 10^3/uL (130-450) 02/11/17 04:35 MPV 7.5 fL (7.9-10.8) L 02/11/17 04:35 Neut # 6.2 10^3/uL (1.5-6.6) 02/11/17 04:35 Lymph # 1.0 10^3/uL (1.5-3.5) L 02/11/17 04:35 [place] # 0.6 10^3/uL (0.0-1.0) 02/11/17 04:35 Eos # 0.0 10^3/uL (0.0-0.7) 02/11/17 04:35 Baso # 0.0 10^3/uL (0.0-0.1) 02/11/17 04:35 Absolute Nucleated RBC 0.00 x10^3/uL 02/11/17 04:35 Nucleated RBC % 0.0 /100WBC 02/11/17 04:35 D-Dimer 689.4 ng/mL (200.0-255.0) H 02/08/17 15:05 Bld Gas Analysis Time 0948 02/09/17 09:46 Sample Site LEFT RADIAL 02/09/17 09:46 ABG pH 7.32 (7.35-7.45) L 02/09/17 09:46 ABG pCO2 67 mmHg (34-45) H* 02/09/17 09:46 ABG pO2 65 mmHg (80-100) L 02/09/17 09:46 ABG HCO3 33.7 mmol/L (22.0-26.0) H 02/09/17 09:46 ABG Total CO2 35.8 MMOL/L (21.0-29.0) H 02/09/17 09:46 ABG O2 Saturation 92 % (94-98) L 02/09/17 09:46 ABG Oximetry Spot Check 92 % 02/09/17 00:55 ABG Base Excess 5.4 mmol/L (-2.0-3.0) H 02/09/17 09:46 Jose Martin Test UNKNOWN 02/09/17 09:46 O2 Delivery Device NASAL CANNULA 02/09/17 09:46 O2 Liters/Min 1.50 LPM 02/09/17 09:46 FiO2 35.00 02/09/17 02:30 EPAP 6 cmH2O 02/09/17 02:30 IPAP 16 cmH2O 02/09/17 02:30 Sodium 139 mmol/L (135-145) 02/11/17 04:35 Potassium 4.1 mmol/L (3.5-5.0) 02/11/17 04:35 Chloride 91 mmol/L (101-111) L 02/11/17 04:35 Carbon Dioxide 44 mmol/L (21-32) H* 02/11/17 04:35 Anion Gap 4.0 (6-13) L 02/11/17 04:35 BUN 31 mg/dL (6-20) H 02/11/17 04:35 Creatinine 0.5 mg/dL (0.4-1.0) 02/11/17 04:35 Estimated GFR (MDRD) 120 (>89) 02/11/17 04:35 Glucose 96 mg/dL (70-100) 02/11/17 04:35 Calcium 8.5 mg/dL (8.5-10.3) 02/11/17 04:35 Magnesium 2.0 mg/dL (1.7-2.8) 02/11/17 04:35 Total Bilirubin 0.3 mg/dL (0.2-1.0) 02/11/17 04:35 AST 38 IU/L (10-42) 02/11/17 04:35 ALT 49 IU/L (10-60) 02/11/17 04:35 Alkaline Phosphatase 53 IU/L (42-121) 02/11/17 04:35 Troponin I 0.04 ng/mL (<0.49) 02/10/17 04:55 B-Natriuretic Peptide 314 pg/mL (5-100) H 02/11/17 04:35 Total Protein 6.1 g/dL (6.7-8.2) L 02/11/17 04:35 Albumin 3.0 g/dL (3.2-5.5) L 02/11/17 04:35 Globulin 3.1 g/dL (2.1-4.2) 02/11/17 04:35 Albumin/Globulin Ratio 1.0 (1.0-2.2) 02/11/17 04:35 TSH 0.52 uIU/mL (0.34-5.60) 02/09/17 04:46 Free T4 0.91 ng/dL (0.58-1.64) 02/09/17 04:46 Thyroxine (T4) 6.44 ug/dL (6.09-12.23) 02/09/17 04:46 Free T3 pg/mL 2.16 pg/mL (2.5-3.9) L 02/09/17 04:46 Total T3 0.52 ng/mL (0.87-1.78) L 02/09/17 04:46
[2017-02-11] MEDS: SODIUM CHLORIDE FLUSH 0.9% 10 ML SYRINGE IVP PRN (21:35)
[2017-02-12 05:45] LABS: BASOPHILS % (AUTO) 0.2 %; EOSINOPHILS # (AUTO) 0.1 10^3/uL (0.0-0.7); EOSINOPHILS % (AUTO) 1.7 %; LYMPHOCYTES % (AUTO) 14.4 %; MEAN PLATELET VOLUME 7.5 fL (7.9-10.8); MONOCYTES # (AUTO) 0.6 10^3/uL (0.0-1.0); MONOCYTES % (AUTO) 9.7 %; PLT - PLATELET COUNT 211 10^3/uL (130-450); RED CELL DISTRIBUTION WIDTH 17.3 % (12.0-15.0); WHITE BLOOD COUNT 6.7 x10^3/uL (4.8-10.8)
[2017-02-12] MEDS: oxyCODONE 5 MG TABLET PO PRN (05:59)
[2017-02-12 06:02] LABS: ALBUMIN 3.1 g/dL (3.2-5.5); ALBUMIN/GLOBULIN RATIO 0.9 (1.0-2.2); BILIRUBIN,TOTAL 0.7 mg/dL (0.2-1.0); CALCIUM 8.6 mg/dL (8.5-10.3); CREATININE 0.6 mg/dL (0.4-1.0); MAGNESIUM 2.1 mg/dL (1.7-2.8); TOTAL PROTEIN 6.4 g/dL (6.7-8.2)
[2017-02-12] MEDS: FUROSEMIDE 40 MG/4 ML VIAL IVP SCH ×3 (06:05→20:08)
[2017-02-12] MEDS: SODIUM CHLORIDE FLUSH 0.9% 10 ML SYRINGE IVP SCH ×3 (06:05→20:09)
[2017-02-12 06:09] LABS: HGB - HEMOGLOBIN 13.9 g/dL (12.0-16.0); RED BLOOD COUNT 5.79 10^6/uL (4.20-5.40)
[2017-02-12 06:10] LABS: MEAN CORPUSCULAR HEMOGLOBIN 23.9 pg (27.0-31.0); MEAN CORPUSCULAR HGB CONC 30.6 g/dL (32.0-36.0); MEAN CORPUSCULAR VOLUME 78.3 fL (81.0-99.0)
[2017-02-12] MEDS: CALCIUM CARBONATE CHEW 500 MG TABLET PO SCH (08:29)
[2017-02-12] MEDS: FAMOTIDINE 20 MG TABLET PO SCH (08:30)
[2017-02-12] MEDS: ENOXAPARIN 40 MG/0.4 ML SYRINGE SUBQ SCH (08:30)
[2017-02-12] MEDS: POLYETHYLENE GLYCOL 3350 17 GM PACKET PO SCH (08:31)
[2017-02-12] MEDS: Cyanocobalamin (Vitamin B-12) [Vitamin B-12] 5,000 MCG PO SCH (08:31)
[2017-02-12] MEDS: methylPREDNISolone 4 MG TABLET PO SCH (08:32)
[2017-02-12] MEDS: MULTIVITAMIN W/MINERALS TABLET PO SCH (08:32)
[2017-02-12] MEDS: CHOLECALCIFEROL 5,000 UNIT CAPSULE PO SCH (08:32)
[2017-02-12] MEDS: OMEGA-3 ACID ETHYL ESTERS 1 GM CAPSULE PO SCH ×2 (08:32→20:08)
[2017-02-12] MEDS: CHLORHEXIDINE GLUCONATE 15 ML UDC PO SCH ×2 (08:33→20:08)
[2017-02-12] MEDS: POTASSIUM GLUCONATE PO SCH (08:33)
[2017-02-12] MEDS: CRAMPS PO PRN (08:33)
[2017-02-12] MEDS: IPRATROPIUM/ALBUTEROL 3 ML NEB INH PRN (08:42)
--- NOTE | 2017-02-12 14:06 | PROVIDER PROGRESS NOTE ---
Assessment/Plan - Problem List (1) Acute respiratory failure with hypoxia and hypercapnia Assessment/Plan: Multifactorial: LV diastolic dysfunction with fluid overload, Deconditioning, possible Obesity Hypoventilation Continue diuresis, COPD treatment and OOB to be uprght (2) Thyroid nodule Assessment/Plan: Needs F/U in the future as outpt (3) PVD (peripheral vascular disease) Assessment/Plan: Continue ordered management as per her Vascular doctor (4) Weakness Assessment/Plan: Pt was able to participate in PT today and is motivated to be DCh home, not to a SNF - Current Meds Current Meds: Current Medications Generic Name Dose Route Start Last Admin Trade Name Freq PRN Reason Stop Dose Admin Albuterol/Ipratropium 3 ml 02/08/17 18:09 02/12/17 08:42 Duoneb INH 3 ml Q4HR PRN Administration Wheezing Calcium Carbonate/Glycine 1,000 mg 02/09/17 09:00 02/12/17 08:29 Tums PO Not Given DAILY TED Chlorhexidine Gluconate 15 ml 02/08/17 21:00 02/12/17 08:33 Peridex PO 15 ml BID TED Administration Cholecalciferol 5,000 unit 02/09/17 09:00 02/12/17 08:32 Vitamin D3 PO 5,000 unit DAILY TED Administration Enoxaparin Sodium 40 mg 02/09/17 09:00 02/12/17 08:30 Lovenox SUBQ Not Given DAILY TED Famotidine 20 mg 02/09/17 09:00 02/12/17 08:30 Pepcid PO Not Given DAILY TED Furosemide 40 mg 02/11/17 14:00 02/12/17 13:53 Lasix Inj 40 Mg Vial IVP 40 mg TID TED Administration Losartan Potassium 50 mg 02/11/17 21:00 02/11/17 21:34 Cozaar PO 50 mg QPM TED Administration Methylprednisolone 12 mg 02/11/17 12:24 02/12/17 08:32 Medrol PO 12 mg DAILYWM TED Administration Multivitamins/Minerals 1 tab 02/09/17 08:00 02/12/17 08:32 Theragran M PO 1 tab DAILYWM TED Administration [id number] Ethyl Esters 1 gm 02/08/17 21:00 02/12/17 08:32 Lovaza PO 1 gm BID TED Administration Oxycodone HCl 5 mg 02/08/17 18:09 02/12/17 05:59 Roxicodone PO 5 mg Q4HR PRN Administration Pain 5 to 7 Cyanocobalamin ( 1 each 02/09/17 09:00 02/12/17 08:31 Vitamin B-12) [ PO Not Given Vitamin B-12] 5,000 DAILY TED Mcg Potassium Gluconate 1 each 02/09/17 17:00 02/12/17 08:33 [Potassium Gluconate PO 1 each ] 5 Meq DAILY TED Administration Leg Cramps 1 Cap 1 each 02/11/17 02:01 02/12/17 08:33 PO 1 each BID PRN Administration Cramp Polyethylene Glycol 17 gm 02/09/17 09:00 02/12/17 08:31 Miralax PO Not Given DAILY TED Sodium Chloride 10 ml 02/08/17 18:09 02/11/17 21:35 Normal Saline Flush 0.9% IVP 10 ml PRN PRN Administration NEEDED PER PROVIDER ORDERS Sodium Chloride 10 ml 02/08/17 22:00 02/12/17 13:53 Normal Saline Flush 0.9% IVP 10 ml Q8HR TED Administration - Lab Result Fish Bone Diagrams: 02/12/17 05:16 02/12/17 05:16 - Additional Planning My Orders: My Active Orders 02/11/17 14:00 FUROSEMIDE INJ 40mg VIAL [LASIX INJ 40 mg VIAL] 40 mg IVP TID 02/11/17 14:30 Daily Dressing Change [RC] DAILY 02/12/17 Evaluate and Treat OT [OT] Routine Evaluate and Treat PT [PT] Routine Subjective - Subjective Patient Reports: Feeling Better Nursing Reports: Other (Patient did comply with getting OOB for the first time, seen by PT) Objective Vital Signs: Vital Signs - 24 hr 02/11/17 02/11/17 02/11/17 16:09 21:37 23:20 Temperature 36.9 C 36.8 C Heart Rate 74 Heart Rate [ 74 Brachial] Heart Rate [ 76 Monitoring electrodes] Respiratory 20 20 20 Rate Blood Pressure 125/57 L [Left Radial artery] Blood Pressure 120/61 [Right Brachial artery] Blood Pressure [Right Radial artery] O2 Saturation 94 94 02/12/17 02/12/17 02/12/17 00:20 08:26 08:43 Temperature 37.0 C 36.8 C Heart Rate 74 Heart Rate [ 81 77 Brachial] Heart Rate [ Monitoring electrodes] Respiratory 16 18 16 Rate Blood Pressure [Left Radial artery] Blood Pressure 101/55 L [Right Brachial artery] Blood Pressure 120/59 L [Right Radial artery] O2 Saturation 94 93 02/12/17 13:48 Temperature 36.7 C Heart Rate Heart Rate [ 85 Brachial] Heart Rate [ Monitoring electrodes] Respiratory 18 Rate Blood Pressure [Left Radial artery] Blood Pressure [Right Brachial artery] Blood Pressure 147/67 H [Right Radial artery] O2 Saturation 93 Oxygen O2 Source Nasal cannula I&O (Last 24 Hrs): Intake and Output Totals x24h 02/10/17 02/11/17 02/12/17 23:59 23:59 23:59 Intake Total 1080 1770 580 Output Total 2076 4600 Balance -995 -2830 580 General: Alert, Oriented x3, Other (Flight of ideas) HEENT: Mucous membr. moist/pink Neck: Supple Cardiovascular: Regular rate Respiratory: No respiratory distress, Other (Diminished BS) Abdomen: Other (Obese with pannus) Extremities: Other (Rausch wrapped Trace leg edema) - Results Results: Laboratory Results WBC 6.7 x10^3/uL (4.8-10.8) 02/12/17 05:16 RBC 5.79 10^6/uL (4.20-5.40) H 02/12/17 05:16 Hgb 13.9 g/dL (12.0-16.0) 02/12/17 05:16 Hct 45.3 % (37.0-47.0) 02/12/17 05:16 MCV 78.3 fL (81.0-99.0) L 02/12/17 05:16 MCH 23.9 pg (27.0-31.0) L 02/12/17 05:16 MCHC 30.6 g/dL (32.0-36.0) L 02/12/17 05:16 RDW 17.3 % (12.0-15.0) H 02/12/17 05:16 Plt Count 211 10^3/uL (130-450) 02/12/17 05:16 MPV 7.5 fL (7.9-10.8) L 02/12/17 05:16 Neut # 5.0 10^3/uL (1.5-6.6) 02/12/17 05:16 Lymph # 1.0 10^3/uL (1.5-3.5) L 02/12/17 05:16 [place] # 0.6 10^3/uL (0.0-1.0) 02/12/17 05:16 Eos # 0.1 10^3/uL (0.0-0.7) 02/12/17 05:16 Baso # 0.0 10^3/uL (0.0-0.1) 02/12/17 05:16 Absolute Nucleated RBC 0.00 x10^3/uL 02/12/17 05:16 Nucleated RBC % 0.0 /100WBC 02/12/17 05:16 D-Dimer 689.4 ng/mL (200.0-255.0) H 02/08/17 15:05 Bld Gas Analysis Time 0948 02/09/17 09:46 Sample Site LEFT RADIAL 02/09/17 09:46 ABG pH 7.32 (7.35-7.45) L 02/09/17 09:46 ABG pCO2 67 mmHg (34-45) H* 02/09/17 09:46 ABG pO2 65 mmHg (80-100) L 02/09/17 09:46 ABG HCO3 33.7 mmol/L (22.0-26.0) H 02/09/17 09:46 ABG Total CO2 35.8 MMOL/L (21.0-29.0) H 02/09/17 09:46 ABG O2 Saturation 92 % (94-98) L 02/09/17 09:46 ABG Oximetry Spot Check 92 % 02/09/17 00:55 ABG Base Excess 5.4 mmol/L (-2.0-3.0) H 02/09/17 09:46 Jose Martin Test UNKNOWN 02/09/17 09:46 O2 Delivery Device NASAL CANNULA 02/09/17 09:46 O2 Liters/Min 1.50 LPM 02/09/17 09:46 FiO2 35.00 02/09/17 02:30 EPAP 6 cmH2O 02/09/17 02:30 IPAP 16 cmH2O 02/09/17 02:30 Sodium 140 mmol/L (135-145) 02/12/17 05:16 Potassium 3.7 mmol/L (3.5-5.0) 02/12/17 05:16 Chloride 89 mmol/L (101-111) L 02/12/17 05:16 Carbon Dioxide 44 mmol/L (21-32) H* 02/12/17 05:16 Anion Gap 7.0 (6-13) 02/12/17 05:16 BUN 30 mg/dL (6-20) H 02/12/17 05:16 Creatinine 0.6 mg/dL (0.4-1.0) 02/12/17 05:16 Estimated GFR (MDRD) 97 (>89) 02/12/17 05:16 Glucose 102 mg/dL (70-100) H 02/12/17 05:16 Calcium 8.6 mg/dL (8.5-10.3) 02/12/17 05:16 Magnesium 2.1 mg/dL (1.7-2.8) 02/12/17 05:16 Total Bilirubin 0.7 mg/dL (0.2-1.0) 02/12/17 05:16 AST 26 IU/L (10-42) 02/12/17 05:16 ALT 53 IU/L (10-60) 02/12/17 05:16 Alkaline Phosphatase 58 IU/L (42-121) 02/12/17 05:16 Troponin I 0.04 ng/mL (<0.49) 02/10/17 04:55 B-Natriuretic Peptide 148 pg/mL (5-100) H 02/12/17 05:16 Total Protein 6.4 g/dL (6.7-8.2) L 02/12/17 05:16 Albumin 3.1 g/dL (3.2-5.5) L 02/12/17 05:16 Globulin 3.3 g/dL (2.1-4.2) 02/12/17 05:16 Albumin/Globulin Ratio 0.9 (1.0-2.2) L 02/12/17 05:16 TSH 0.52 uIU/mL (0.34-5.60) 02/09/17 04:46 Free T4 0.91 ng/dL (0.58-1.64) 02/09/17 04:46 Thyroxine (T4) 6.44 ug/dL (6.09-12.23) 02/09/17 04:46 Free T3 pg/mL 2.16 pg/mL (2.5-3.9) L 02/09/17 04:46 Total T3 0.52 ng/mL (0.87-1.78) L 02/09/17 04:46
[2017-02-12] MEDS: LOSARTAN 50 MG TABLET PO SCH (20:09)
[2017-02-13] MEDS: oxyCODONE 5 MG TABLET PO PRN (04:52)
[2017-02-13 05:23] LABS: CALCIUM 8.6 mg/dL (8.5-10.3); CREATININE 0.5 mg/dL (0.4-1.0); MAGNESIUM 2.1 mg/dL (1.7-2.8)
[2017-02-13] MEDS: SODIUM CHLORIDE FLUSH 0.9% 10 ML SYRINGE IVP SCH ×3 (05:55→21:29)
[2017-02-13] MEDS: FUROSEMIDE 40 MG/4 ML VIAL IVP SCH ×3 (05:55→21:29)
[2017-02-13] MEDS: POLYETHYLENE GLYCOL 3350 17 GM PACKET PO SCH (08:28)
[2017-02-13] MEDS: CALCIUM CARBONATE CHEW 500 MG TABLET PO SCH (08:28)
[2017-02-13] MEDS: Cyanocobalamin (Vitamin B-12) [Vitamin B-12] 5,000 MCG PO SCH (08:28)
[2017-02-13] MEDS: ENOXAPARIN 40 MG/0.4 ML SYRINGE SUBQ SCH (08:28)
[2017-02-13] MEDS: FAMOTIDINE 20 MG TABLET PO SCH (08:28)
[2017-02-13] MEDS: CRAMPS PO PRN (08:29)
[2017-02-13] MEDS: methylPREDNISolone 4 MG TABLET PO SCH (08:29)
[2017-02-13] MEDS: CHOLECALCIFEROL 5,000 UNIT CAPSULE PO SCH (08:29)
[2017-02-13] MEDS: CHLORHEXIDINE GLUCONATE 15 ML UDC PO SCH ×2 (08:29→21:30)
[2017-02-13] MEDS: MULTIVITAMIN W/MINERALS TABLET PO SCH (08:29)
[2017-02-13] MEDS: OMEGA-3 ACID ETHYL ESTERS 1 GM CAPSULE PO SCH ×2 (08:29→21:29)
[2017-02-13] MEDS: POTASSIUM GLUCONATE PO SCH (08:29)
[2017-02-13] MEDS: LOSARTAN 50 MG TABLET PO SCH (21:29)
[2017-02-14] MEDS: oxyCODONE 5 MG TABLET PO PRN ×2 (03:24→12:02)
[2017-02-14] MEDS: FUROSEMIDE 40 MG/4 ML VIAL IVP SCH ×2 (06:32→15:49)
[2017-02-14] MEDS: SODIUM CHLORIDE FLUSH 0.9% 10 ML SYRINGE IVP SCH ×2 (06:32→15:49)
[2017-02-14] MEDS: methylPREDNISolone 4 MG TABLET PO SCH (09:10)
[2017-02-14] MEDS: MULTIVITAMIN W/MINERALS TABLET PO SCH (09:12)
[2017-02-14] MEDS: CALCIUM CARBONATE CHEW 500 MG TABLET PO SCH (09:13)
[2017-02-14] MEDS: ENOXAPARIN 40 MG/0.4 ML SYRINGE SUBQ SCH (09:14)
[2017-02-14] MEDS: CHOLECALCIFEROL 5,000 UNIT CAPSULE PO SCH (09:14)
[2017-02-14] MEDS: FAMOTIDINE 20 MG TABLET PO SCH (09:15)
[2017-02-14] MEDS: OMEGA-3 ACID ETHYL ESTERS 1 GM CAPSULE PO SCH (09:15)
[2017-02-14] MEDS: Cyanocobalamin (Vitamin B-12) [Vitamin B-12] 5,000 MCG PO SCH (09:16)
[2017-02-14] MEDS: POLYETHYLENE GLYCOL 3350 17 GM PACKET PO SCH (09:17)
[2017-02-14] MEDS: POTASSIUM GLUCONATE PO SCH (09:17)
[2017-02-14] MEDS: CRAMPS PO PRN (09:19)
--- NOTE | 2017-02-14 12:13 | Discharge Plan ---
Discharge Plan Disposition: Home Health Service Condition: Fair Prescriptions: Furosemide [Lasix] 80 mg PO DAILY #60 tablet predniSONE [Prednisone] 40 mg PO DAILY #14 tablet Diet: Low Sodium Activity Restrictions: Activity as Tolerated Shower Restrictions: No Driving Restrictions: No Assistance Devices: Wheelchair Weight Bearing: Full Weight Additional Instructions or Follow Up instructions: You presented to our emergency department with low oxygen level. You were in respiratory distress and were found to have pulmonary edema and a COPD exacerbation. You were treated with steroids, nebulizer treatments and a water pill (Lasix) through an IV. We were able to wean down her oxygen while you were hospitalized to wear at rest you were saturating around 90% without oxygen. We still feel that you do require oxygen you still do need oxygen with exertion and we recommend that you wear it at rest especially when asleep. I suspect that you have obstructive sleep apnea and you need to follow-up with your primary care physician to get a sleep study. You are being discharged with 1 week worth of oral steroids to complete treatment for COPD. I suggest that you continue to take her inhaler if you start to wheeze or feel short of air. You have also been discharged with an increased dose of Lasix you should take 80 mg of Lasix daily. No Smoking: If you smoke, Please STOP! Call for help. Follow-up with: Jordon Zee MD [Primary Care Provider] -
[2017-02-14 16:14] VITALS: BP 132/76
--- NOTE | 2017-02-14 16:39 | PROVIDER PROGRESS NOTE ---
Assessment/Plan - Problem List (1) Acute respiratory failure with hypoxia and hypercapnia Assessment/Plan: Multifactorial: LV diastolic dysfunction with fluid overload, Deconditioning, possible Obesity Hypoventilation and LISANDRA Continue diuresis, COPD treatment and supplemental O2 Patient down to 2L of O2 and appears comfortable Lungs still decreased but are opening up with more air flow We will set up home health PT and RN for patient as she is insistent that she wants to go home Improving will likely go home tomorrow (2) Thyroid nodule Assessment/Plan: Needs F/U in the future as outpt (3) PVD (peripheral vascular disease) Assessment/Plan: Continue ordered management as per her Vascular doctor (4) Weakness Assessment/Plan: Continues to work with PT and is motivated to be DCh home, not to a SNF, will order home health PT - Current Meds Current Meds: Current Medications Generic Name Dose Route Start Last Admin Trade Name Freq PRN Reason Stop Dose Admin Albuterol/Ipratropium 3 ml 02/08/17 18:09 02/12/17 08:42 Duoneb INH 3 ml Q4HR PRN Administration Wheezing Calcium Carbonate/Glycine 1,000 mg 02/09/17 09:00 02/14/17 09:13 Tums PO Not Given DAILY TED Cholecalciferol 5,000 unit 02/09/17 09:00 02/14/17 09:14 Vitamin D3 PO 5,000 unit DAILY TED Administration Enoxaparin Sodium 40 mg 02/09/17 09:00 02/14/17 09:14 Lovenox SUBQ Not Given DAILY TED Famotidine 20 mg 02/09/17 09:00 02/14/17 09:15 Pepcid PO Not Given DAILY TED Furosemide 40 mg 02/11/17 14:00 02/14/17 15:49 Lasix Inj 40 Mg Vial IVP 40 mg TID TED Administration Losartan Potassium 50 mg 02/11/17 21:00 02/13/17 21:29 Cozaar PO 50 mg QPM TED Administration Methylprednisolone 12 mg 02/11/17 12:24 02/14/17 09:10 Medrol PO 12 mg DAILYWM TED Administration Multivitamins/Minerals 1 tab 02/09/17 08:00 02/14/17 09:12 Theragran M PO 1 tab DAILYWM TED Administration Wvoyn-[id number] Ethyl Esters 1 gm 02/08/17 21:00 02/14/17 09:15 Lovaza PO 1 gm BID TED Administration Oxycodone HCl 5 mg 02/08/17 18:09 02/14/17 12:02 Roxicodone PO 5 mg Q4HR PRN Administration Pain 5 to 7 Cyanocobalamin ( 1 each 02/09/17 09:00 02/14/17 09:16 Vitamin B-12) [ PO Not Given Vitamin B-12] 5,000 DAILY TED Mcg Potassium Gluconate 1 each 02/09/17 17:00 02/14/17 09:17 [Potassium Gluconate PO 1 each ] 5 Meq DAILY TED Administration Leg Cramps 1 Cap 1 each 02/11/17 02:01 02/14/17 09:19 PO 1 each BID PRN Administration Cramp Polyethylene Glycol 17 gm 02/09/17 09:00 02/14/17 09:17 Miralax PO Not Given DAILY TED Sodium Chloride 10 ml 02/08/17 18:09 02/11/17 21:35 Normal Saline Flush 0.9% IVP 10 ml PRN PRN Administration NEEDED PER PROVIDER ORDERS Sodium Chloride 10 ml 02/08/17 22:00 02/14/17 15:49 Normal Saline Flush 0.9% IVP 10 ml Q8HR TED Administration - Lab Result Lab results reviewed: Yes Fish Bone Diagrams: 02/12/17 05:16 02/13/17 04:38 - Diagnostic Imaging Results Diagnostic Imaging Results: Final report reviewed - Additional Planning Condition/Complexity: Improved My Orders: My Active Orders 02/14/17 12:20 Discharge [RC] .ONCE Consult/Specialty: PT Plan Discussed with:: Patient Time Spent: 31-60 minutes Subjective - Subjective Patient Reports: Feeling Better, Resting Comfortably, Cough (Bringing up phlegm but improved), Shortness of Breath (Much improved), Other (No fevers or chills) Nursing Reports: No Complaints Objective Vital Signs: Vital Signs - 24 hr 02/13/17 02/13/17 02/13/17 21:29 21:44 23:58 Temperature 36.8 C Heart Rate [ 75 84 Brachial] Respiratory 20 Rate Blood Pressure 133/64 H 117/59 L [Right Radial artery] O2 Saturation 93 91 L 02/14/17 02/14/17 09:44 16:12 Temperature 37.0 C 37.0 C Heart Rate [ 86 92 Brachial] Respiratory 20 20 Rate Blood Pressure 116/47 L 132/76 H [Right Radial artery] O2 Saturation 91 L 92 Oxygen O2 Source Room air I&O (Last 24 Hrs): Intake and Output Totals x24h 02/12/17 02/13/17 02/14/17 23:59 23:59 23:59 Intake Total 990 1130 420 Output Total 700 2550 1400 Balance 290 -1420 -980 General: Alert, Oriented x3, Cooperative, No acute distress, Other (Morbidly obese) HEENT: Atraumatic, PERRLA, EOMI, Mucous membr. moist/pink Neck: Supple, No JVD, No thyromegaly, +2 carotid pulse wo bruit, No LAD Lymphatic: no adenopathy Neuro: Alert, Non Focal, CN 2-12 Grossly Intact, Oriented Times 3 Cardiovascular: Regular rate, Normal S1, Normal S2, No murmurs Respiratory: Chest non-tender, Other (Decreased breath sounds bilaterally) Abdomen: Normal bowel sounds, Soft, No tenderness, No hepatospenomegaly Extremities: No clubbing, No cyanosis, Normal pulses, Other (Bilateral lower extremity edema with chronic changes of PVD) Comments/Notes: LE changes of PVD - Results Results: Laboratory Results WBC 6.7 x10^3/uL (4.8-10.8) 02/12/17 05:16 RBC 5.79 10^6/uL (4.20-5.40) H 02/12/17 05:16 Hgb 13.9 g/dL (12.0-16.0) 02/12/17 05:16 Hct 45.3 % (37.0-47.0) 02/12/17 05:16 MCV 78.3 fL (81.0-99.0) L 02/12/17 05:16 MCH 23.9 pg (27.0-31.0) L 02/12/17 05:16 MCHC 30.6 g/dL (32.0-36.0) L 02/12/17 05:16 RDW 17.3 % (12.0-15.0) H 02/12/17 05:16 Plt Count 211 10^3/uL (130-450) 02/12/17 05:16 MPV 7.5 fL (7.9-10.8) L 02/12/17 05:16 Neut # 5.0 10^3/uL (1.5-6.6) 02/12/17 05:16 Lymph # 1.0 10^3/uL (1.5-3.5) L 02/12/17 05:16 [place] # 0.6 10^3/uL (0.0-1.0) 02/12/17 05:16 Eos # 0.1 10^3/uL (0.0-0.7) 02/12/17 05:16 Baso # 0.0 10^3/uL (0.0-0.1) 02/12/17 05:16 Absolute Nucleated RBC 0.00 x10^3/uL 02/12/17 05:16 Nucleated RBC % 0.0 /100WBC 02/12/17 05:16 D-Dimer 689.4 ng/mL (200.0-255.0) H 02/08/17 15:05 Bld Gas Analysis Time 0948 02/09/17 09:46 Sample Site LEFT RADIAL 02/09/17 09:46 ABG pH 7.32 (7.35-7.45) L 02/09/17 09:46 ABG pCO2 67 mmHg (34-45) H* 02/09/17 09:46 ABG pO2 65 mmHg (80-100) L 02/09/17 09:46 ABG HCO3 33.7 mmol/L (22.0-26.0) H 02/09/17 09:46 ABG Total CO2 35.8 MMOL/L (21.0-29.0) H 02/09/17 09:46 ABG O2 Saturation 92 % (94-98) L 02/09/17 09:46 ABG Oximetry Spot Check 92 % 02/09/17 00:55 ABG Base Excess 5.4 mmol/L (-2.0-3.0) H 02/09/17 09:46 Jose Martin Test UNKNOWN 02/09/17 09:46 O2 Delivery Device NASAL CANNULA 02/09/17 09:46 O2 Liters/Min 1.50 LPM 02/09/17 09:46 FiO2 35.00 02/09/17 02:30 EPAP 6 cmH2O 12/31/17 02:30 IPAP 16 cmH2O 02/09/17 02:30 Sodium 140 mmol/L (135-145) 02/13/17 04:38 Potassium 3.4 mmol/L (3.5-5.0) L 02/13/17 04:38 Chloride 90 mmol/L (101-111) L 02/13/17 04:38 Carbon Dioxide 41 mmol/L (21-32) H* 02/13/17 04:38 Anion Gap 9.0 (6-13) 02/13/17 04:38 BUN 31 mg/dL (6-20) H 02/13/17 04:38 Creatinine 0.5 mg/dL (0.4-1.0) 02/13/17 04:38 Estimated GFR (MDRD) 120 (>89) 02/13/17 04:38 Glucose 112 mg/dL (70-100) H 02/13/17 04:38 Calcium 8.6 mg/dL (8.5-10.3) 02/13/17 04:38 Magnesium 2.1 mg/dL (1.7-2.8) 02/13/17 04:38 Total Bilirubin 0.7 mg/dL (0.2-1.0) 02/12/17 05:16 AST 26 IU/L (10-42) 02/12/17 05:16 ALT 53 IU/L (10-60) 02/12/17 05:16 Alkaline Phosphatase 58 IU/L (42-121) 02/12/17 05:16 Troponin I 0.04 ng/mL (<0.49) 02/10/17 04:55 B-Natriuretic Peptide 148 pg/mL (5-100) H 02/12/17 05:16 Total Protein 6.4 g/dL (6.7-8.2) L 02/12/17 05:16 Albumin 3.1 g/dL (3.2-5.5) L 02/12/17 05:16 Globulin 3.3 g/dL (2.1-4.2) 02/12/17 05:16 Albumin/Globulin Ratio 0.9 (1.0-2.2) L 02/12/17 05:16 TSH 0.52 uIU/mL (0.34-5.60) 02/09/17 04:46 Free T4 0.91 ng/dL (0.58-1.64) 02/09/17 04:46 Thyroxine (T4) 6.44 ug/dL (6.09-12.23) 02/09/17 04:46 Free T3 pg/mL 2.16 pg/mL (2.5-3.9) L 02/09/17 04:46 Total T3 0.52 ng/mL (0.87-1.78) L 02/09/17 04:46
--- NOTE | 2017-02-14 16:44 | DISCHARGE SUMMARY ---
Discharge Summary Admit Date: 02/08/17 Discharge Date: 02/14/17 Discharging Provider: Sergei Ayala MD Primary Care Provider: Jordon Zee MD Code Status: Do Not Attempt Resuscitation Condition at Discharge: Fair Discharge Disposition: 06 Home Health Service - DIAGNOSES Admission Diagnoses: 1. Acute respiratory failure with hypoxia and hypercapnia 2. COPD exacerbation 3. CHF exacerbation 4. Obstructive sleep apnea 5. Obesity 6. Hypertension 7. Thyroid nodule 8. Prophylactic use of low molecular weight heparin for DVT prophylaxis Discharge Diagnoses with Status of Each Condition: 1. Acute respiratory failure with hypoxia and hypercapnia: Resolving 2. COPD exacerbation: Improving 3. CHF exacerbation: Improving 4. Obesity: Stable 5. Hypertension: Stable 6. Thyroid nodule: Stable 7. Weakness: Stable - HPI History of Present Illness: Patient is a 76-year-old female with a past medical history significant for morbid obesity, childhood asthma, hypertension, overactive bladder, chronic venous stasis of her lower extremities, chronic pain of her lower extremities and right hip from arthritis who presented to the emergency department with a chief complaint of shortness of breath. The patient states that she was in her normal state of health until 2 days ago when she states that she began feeling short of air. She states that she went for an appointment regarding her lower extremity venous stasis as she was going to be getting ready for a procedure. She states that at that appointment she was noted to have an oxygen saturation in the 80s and her blood pressure was low. She states that she was told to go to the ER at that time however she decided against it as she was with her daughter and she states that she did not feel that bad. She states that she called her primary care physician when she got back home but did not receive a call back. She states that that night she had a lot of trouble sleeping and was having difficulty breathing throughout the night. She states that over the last 2 days she has had increasing cough with thick phlegm. She states that she has had to sleep in a recliner and she states that if she lies back even slightly she becomes very short of air. She states that she cannot lie flat at all. Patient states that at home she gets around with a wheelchair and today she states that just getting from her recliner to her wheelchair she became very short of air. The patient states that she was finally able to get a hold of her primary care physician this morning and was able to go in for a walk-in appointment. She states that just going to the appointment she became very exhausted and short of air. When she arrived her oxygen saturation was in the 70s and she was told to go to the emergency department. The patient states that at this point she had severe enough symptoms that she finally decided to go to the ER. The patient denies any fevers or chills. She denies any chest pain or increased lower extremity swelling. The patient states that she does have chronic lower extremity swelling. She does admit to paroxysmal nocturnal dyspnea for the last 2 days. Patient denies any headaches, blurred vision, runny nose, sore throat, nasal congestion, abdominal pain, nausea, vomiting, diarrhea, constipation, urinary urgency, dysuria, recent unintentional weight loss, weight gain, neck stiffness or any focal neurologic deficits. The patient does admit to chronic pain in her right hip and her left lower extremity. On presentation to the emergency department the patient was afebrile heart rate was 91 she was slightly hypertensive and tachypneic the patient's oxygen saturation was 76% on room air. The patient did not appear to have any conversational dyspnea nor was she in respiratory distress at rest. However it was noted that if she exerted herself at all that she would become short of air. The patient underwent routine lab testing which revealed no leukocytosis and a normal hemoglobin. The patient did have an elevated d-dimer. She also was found to have an elevated CO2 on her chemistry of 37 and an elevated BNP of 617. Otherwise the remainder of her tests including her troponin were all within normal limits. The patient underwent imaging including a chest x-ray which revealed cardiomegaly with bilateral hilar fullness questionable for fluid overload. She did have opacities in the lateral lung base which could represent soft tissue attenuation versus infiltrate. The patient then underwent a CT angios of her chest this revealed no pulmonary embolism and a small left pleural effusion with adjacent atelectasis. She was also noted to have a left thyroid nodule. The patient was found to have groundglass attenuation which can be seen in air trapping or small vessel disease. There was no findings of focal infiltrate or consolidation. The patient had a blood gas performed in the emergency department which revealed that she was acidotic with a pH of 7.32 with hypercapnia and a CO2 of 72 and a PO2 of 80 on 4 L of oxygen. The patient was admitted to the intensive care unit on BiPAP for acute respiratory failure with hypoxia and hypercapnia. - HOSPITAL COURSE Hospital Course: Patient's initial ABG showed that she had hypercapnia with PCO2 of 72 and acidosis. Repeat ABG showed worsening hypercapnia with PCO2 of 89 and worsening acidosis. The patient was placed on BiPAP and remained on BiPAP for over 24 hours her repeat ABG off BiPAP was improved with PCO2 down to 67. The patient seemed to tolerate being off BiPAP well and continue to improve over the course of the hospitalization. The patient was treated with IV steroids, duo nebs and oxygen for COPD exacerbation. She was also treated with IV Lasix 40 mg IV 3 times daily for diastolic heart failure. The patient's workup including echocardiogram revealed a normal ejection fraction with a mild diastolic dysfunction and left atrium that was mildly dilated. She did have mild to moderate pulmonary hypertension with a PA pressure of 45. The patient was not found to have any pulmonary emboli and chest x-ray only showed some mild pleural effusions. The patient improved significantly over her week long stay in the hospital. She was weaned down to room air by the time of discharge. She was found to still be hypoxic with exertion and therefore was discharged home with home O2. The patient did have significant deconditioning and was quite weak the physical therapist did initially recommend sniff however the patient declined and wanted to go home. The patient eventually was sent home with home care PT and nursing. The patient was diuresed at least 5 L negative. The patient was continued on Lasix at discharge she was prescribed 80 mg daily. She was also continued on steroids for her COPD for 7 additional days and will continue to use inhalers as needed. The patient was in stable condition at the time of discharge. The patient was found to have multiple thyroid nodules and after ultrasound it was recommended that she get biopsy. The patient also appeared likely to have obstructive sleep apnea. It is recommended that the patient follow-up with her primary care physician for sleep study as well as for biopsy of her thyroid nodule. - ALLERGIES Allergies/Adverse Reactions: Allergies Allergy/AdvReac Type Severity Reaction Status Date / Time aloe Allergy Unknown Verified 10/09/15 16:32 - MEDICATIONS Home Medications: Ambulatory Orders Medication Instructions Recorded Confirmed Losartan Potassium 50 mg PO DAILY 10/09/15 02/09/17 Oxycodone HCl 5 mg PO BID 10/09/15 02/09/17 Cholecalciferol (Vitamin D3) 5,000 units PO DAILY 01/01/16 02/09/17 [Vitamin D3] Cyanocobalamin (Vitamin B-12) 5,000 mcg SL DAILY 01/01/16 02/09/17 [Vitamin B-12] Glucosam/Chond/MSM/Williams/Hyal 1 - 2 tab PO DAILY 01/01/16 02/09/17 [Glucosamine-Chondr Complex Tab] Potassium Gluconate 5 meq PO DAILY 01/01/16 02/09/17 Alpha Lipoic Acid [Lipoic Acid] 600 mg PO DAILY 05/06/16 02/09/17 Cinnamon Bark [Cinnamon] 1,500 mg PO DAILY 05/06/16 02/09/17 Garlic 1,000 mg PO DAILY 05/06/16 02/09/17 Lactobacillus Acidophilus 1 each PO DAILY 05/06/16 02/09/17 [Acidophilus] [place]-3/Dha/Epa/Fish Oil [Fish Oil 1,000 mg PO BID 05/06/16 02/09/17 1,000 mg Softgel] Ubidecarenone/Vitamin E Mixed 1 each PO DAILY 05/06/16 02/09/17 [Ewq06-Cko E 100 mg-10 Unit Sfg] Vitamin B Complex 1 each PO DAILY 05/06/16 02/09/17 Vitamin E 400 unit PO DAILY 05/06/16 02/09/17 Albuterol Sulfate [Proair 2 puffs INH Q4H PRN 02/09/17 02/09/17 Respiclick] Caffeine 200 mg PO DAILY 02/09/17 02/09/17 Echinacea Root/Goldenseal Root 1 each PO DAILY 02/09/17 02/09/17 [Echinac-Goldenseal 250-250 mg] Multivitamin [Multivitamins] 1 each PO DAILY 02/09/17 02/09/17 Furosemide [Lasix] 80 mg PO DAILY #60 tablet 02/14/17 predniSONE [Prednisone] 40 mg PO DAILY #14 tablet 02/14/17 - PHYSICAL EXAM AT DISCHARGE General Appearance: positive: No acute distress, Alert, Other (Morbidly obese) Eyes Bilateral: positive: Normal inspection, PERRL, EOMI, No lid inflammation, Conjunctivae nml, No scleral icterus ENT: positive: ENT inspection nml, Pharynx nml, No signs of dehydration. negative: Purulent nasal drainage, Pharyngeal erythema, Oral lesions Neck: positive: Nml inspection, Thyroid nml, No JVD, Trachea midline. negative : Thyromegaly, Lymphadenopathy (R), Lymphadenopathy (L), Carotid bruit, Tracheal deviation Respiratory: positive: Chest non-tender, No respiratory distress, Other ( Diminished bilaterally) Cardiovascular: positive: Regular rate & rhythm, No murmur, No gallop Peripheral Pulses: positive: 2+ Abdomen: positive: Non-tender, No organomegaly, Nml bowel sounds, No distention. negative: Guarding, Rebound, Hepatomegaly Back: positive: Nml inspection. negative: CVA tenderness (R), CVA tenderness (L ) Skin: positive: Warm, Dry, Other (Hyperpigmentation of the skin bilateral LEs). negative: Cyanosis, Pallor Extremities: positive: Non-tender, Full ROM, Other (LE changes of PVD) Neurologic/Psychiatric: positive: Oriented x3, CN's nml (2-12), Motor nml, Sensation nml, Mood/affect nml - LABS Result Diagrams: 02/12/17 05:16 02/13/17 04:38 Other Lab Results: Laboratory Results WBC 6.7 x10^3/uL (4.8-10.8) 02/12/17 05:16 RBC 5.79 10^6/uL (4.20-5.40) H 02/12/17 05:16 Hgb 13.9 g/dL (12.0-16.0) 02/12/17 05:16 Hct 45.3 % (37.0-47.0) 02/12/17 05:16 MCV 78.3 fL (81.0-99.0) L 02/12/17 05:16 MCH 23.9 pg (27.0-31.0) L 02/12/17 05:16 MCHC 30.6 g/dL (32.0-36.0) L 02/12/17 05:16 RDW 17.3 % (12.0-15.0) H 02/12/17 05:16 Plt Count 211 10^3/uL (130-450) 02/12/17 05:16 MPV 7.5 fL (7.9-10.8) L 02/12/17 05:16 Neut # 5.0 10^3/uL (1.5-6.6) 02/12/17 05:16 Lymph # 1.0 10^3/uL (1.5-3.5) L 02/12/17 05:16 [place] # 0.6 10^3/uL (0.0-1.0) 02/12/17 05:16 Eos # 0.1 10^3/uL (0.0-0.7) 02/12/17 05:16 Baso # 0.0 10^3/uL (0.0-0.1) 02/12/17 05:16 Absolute Nucleated RBC 0.00 x10^3/uL 02/12/17 05:16 Nucleated RBC % 0.0 /100WBC 02/12/17 05:16 D-Dimer 689.4 ng/mL (200.0-255.0) H 02/08/17 15:05 Bld Gas Analysis Time 0948 02/09/17 09:46 Sample Site LEFT RADIAL 02/09/17 09:46 ABG pH 7.32 (7.35-7.45) L 02/09/17 09:46 ABG pCO2 67 mmHg (34-45) H* 02/09/17 09:46 ABG pO2 65 mmHg (80-100) L 02/09/17 09:46 ABG HCO3 33.7 mmol/L (22.0-26.0) H 02/09/17 09:46 ABG Total CO2 35.8 MMOL/L (21.0-29.0) H 02/09/17 09:46 ABG O2 Saturation 92 % (94-98) L 02/09/17 09:46 ABG Oximetry Spot Check 92 % 02/09/17 00:55 ABG Base Excess 5.4 mmol/L (-2.0-3.0) H 02/09/17 09:46 Jose Martin Test UNKNOWN 02/09/17 09:46 O2 Delivery Device NASAL CANNULA 02/09/17 09:46 O2 Liters/Min 1.50 LPM 02/09/17 09:46 FiO2 35.00 02/09/17 02:30 EPAP 6 cmH2O 02/09/17 02:30 IPAP 16 cmH2O 02/09/17 02:30 Sodium 140 mmol/L (135-145) 02/13/17 04:38 Potassium 3.4 mmol/L (3.5-5.0) L 02/13/17 04:38 Chloride 90 mmol/L (101-111) L 02/13/17 04:38 Carbon Dioxide 41 mmol/L (21-32) H* 02/13/17 04:38 Anion Gap 9.0 (6-13) 02/13/17 04:38 BUN 31 mg/dL (6-20) H 02/13/17 04:38 Creatinine 0.5 mg/dL (0.4-1.0) 02/13/17 04:38 Estimated GFR (MDRD) 120 (>89) 02/13/17 04:38 Glucose 112 mg/dL (70-100) H 02/13/17 04:38 Calcium 8.6 mg/dL (8.5-10.3) 02/13/17 04:38 Magnesium 2.1 mg/dL (1.7-2.8) 02/13/17 04:38 Total Bilirubin 0.7 mg/dL (0.2-1.0) 02/12/17 05:16 AST 26 IU/L (10-42) 02/12/17 05:16 ALT 53 IU/L (10-60) 02/12/17 05:16 Alkaline Phosphatase 58 IU/L (42-121) 02/12/17 05:16 Troponin I 0.04 ng/mL (<0.49) 02/10/17 04:55 B-Natriuretic Peptide 148 pg/mL (5-100) H 02/12/17 05:16 Total Protein 6.4 g/dL (6.7-8.2) L 02/12/17 05:16 Albumin 3.1 g/dL (3.2-5.5) L 02/12/17 05:16 Globulin 3.3 g/dL (2.1-4.2) 02/12/17 05:16 Albumin/Globulin Ratio 0.9 (1.0-2.2) L 02/12/17 05:16 TSH 0.52 uIU/mL (0.34-5.60) 02/09/17 04:46 Free T4 0.91 ng/dL (0.58-1.64) 02/09/17 04:46 Thyroxine (T4) 6.44 ug/dL (6.09-12.23) 02/09/17 04:46 Free T3 pg/mL 2.16 pg/mL (2.5-3.9) L 02/09/17 04:46 Total T3 0.52 ng/mL (0.87-1.78) L 02/09/17 04:46 - DIAGNOSTIC IMAGING Diagnostic Imaging Results: Final report reviewed Diagnostic Imaging Results Comments: Chest x-ray Impression: 1. Cardiomegaly with bilateral hilar fullness, question development of fluid overload. 2. Opacity in the lateral lung base, which may represent a soft tissue attenuation artifact versus infiltrate. CT angiogram chest/thorax Impression: 1. Negative for pulmonary embolism. 2. Small left pleural effusion with adjacent atelectasis 3. There is a left thyroid nodule for which follow-up thyroid ultrasound exam should be considered. Chest x-ray 02/09/2017 Impression: Minimal left basilar atelectasis and trace left pleural effusion. Otherwise, lungs are clear Soft tissue ultrasound thyroid Impression: 1. Technically suboptimal evaluation secondary to patient positioning 2. Multiple thyroid nodules as appear above. The largest nodule in in the left lobe and meets consensus criteria for tissue sampling - FOLLOW UP Follow Up: Patient was admitted with acute respiratory failure with hypoxia and hypercapnia which resolved with Lasix and treatment of COPD. The patient is now on room air at the time of discharge. Patient will be discharged home on O2. Patient is also going to be receiving prednisone 40 mg for the next 7 days and will have her Lasix dose increased to 80 mg daily. The patient will need to follow-up with her primary care physician for a sleep study as she appears to likely have obstructive sleep apnea given her history and her body habitus. She also needs to follow-up with her primary care physician to have biopsy of her thyroid nodule. The patient is being discharged home with home health PT and RN. - TIME SPENT Time Spent in Discharge (Minutes): 45 (FAX TO PCP)
== END 2017-02-14 17:40 | disposition home health service (06) | DRG 189 ==
LOC: ED 13:57 → MS2 18:09 → ICU 19:15 → MS3 02-11 21:08
PROVIDERS: ADMIT Internal Medicine; ATTEND Internal Medicine
DX: R09.02 Hypoxemia (principal); I10 Essential (primary) hypertension; J96.01 Acute respiratory failure with hypoxia; I50.33 Acute on chronic diastolic (congestive) heart failure; J44.1 Chronic obstructive pulmonary disease with (acute) exacerbation; Z68.41 Body mass index [BMI] 40.0-44.9, adult; E87.2 Acidosis; J96.02 Acute respiratory failure with hypercapnia; I11.0 Hypertensive heart disease with heart failure; G47.33 Obstructive sleep apnea (adult) (pediatric); I27.20 Pulmonary hypertension, unspecified; E66.01 Morbid (severe) obesity due to excess calories; I87.8 Other specified disorders of veins; E04.2 Nontoxic multinodular goiter; N32.81 Overactive bladder; G89.29 Other chronic pain; I73.9 Peripheral vascular disease, unspecified; G62.9 Polyneuropathy, unspecified; M16.11 Unilateral primary osteoarthritis, right hip; G47.419 Narcolepsy without cataplexy; Z66 Do not resuscitate; Z86.14 Personal history of Methicillin resistant Staphylococcus aureus infection; Z99.3 Dependence on wheelchair; Z79.891 Long term (current) use of opiate analgesic
CPT/HCPCS: 36415; 36600; 71010; 71275; 76536; 80048; 80053; 82803; 83735; 83880; 84436; 84439; 84443; 84480; 84481; 84484; 85025; 85379; 87150; 93005; 93306; 94640; 94660; 96374; 99283; 99284

== ENCOUNTER 2017-03-27 15:45 | Outpatient (CLI) | payer MEDICARE, MEDICAID | END 2017-03-27 15:46 | disposition home or self-care (01) | LOC: LAB 15:45 | PROVIDERS: ATTEND Specialist | DX: E06.3 Autoimmune thyroiditis (principal) | CPT/HCPCS: 36415; 86376; 86800 ==

== ENCOUNTER 2017-03-27 16:18 | Inpatient (IN) | payer MEDICARE, MEDICAID ==
--- NOTE | 2017-03-27 17:18 | XRAY Report ---
EXAM: CHEST RADIOGRAPHY EXAM DATE: 03/27/2017 05:01 PM. CLINICAL HISTORY: Hypoxia. COMPARISON: 02/09/2017 chest x-ray. TECHNIQUE: 1 view. FINDINGS: Lungs/Pleura: Pulmonary vascular congestion without overt edema. No pleural effusion or pneumothorax. Mediastinum: Within exam limitations, the cardiomediastinal contour is normal. Other: None. IMPRESSION: Pulmonary vascular congestion. No overt edema or focal air space disease. [facility] Referring Provider Line: [phone] SITE ID: [id number]
--- NOTE | 2017-03-27 17:33 | ED Physician Documentation ---
PD HPI DYSPNEA - Stated complaint Stated Complaint: SOA - Chief complaint Chief Complaint: Resp - History obtained from History obtained from: Patient - History of Present Illness Timing - onset: How many days ago (several days of feeling "unwell" with some cough, congestion, dyspnea, orthopnea. Has hsitory of leg edema from lymphatics. [facility] admissions for pneumonia. Had ECHO Feb 2017 with EF 60% but pulmonary HTN and RA enlargement.) Timing - onset during: Rest Timing - duration: Days Timing - details: Gradual onset, Still present Inciting event(s): URI (some cough for a few days, with mild sputum production) . No: Out of meds, Allergic rxn/anaphylaxis Improved by: Sitting up Worsened by: Laying flat Associated symptoms: Cough, Wheezing, Chest pain / discomfort. No: Fever, Palpitations, Diaphoresis Recently seen: Emergency Dept, Admitted (a month ago for dypsnea due to pneumonia and COPD with possible CHF. ECHO at the time was 60% EF but pulmonary HTN and RA enlargeemtn.) Review of Systems Constitutional: reports: Chills, Myalgias, Fatigue. denies: Fever Nose: reports: Congestion. denies: Rhinorrhea / runny nose Throat: denies: Sore throat Cardiac: denies: Chest pain / pressure, Palpitations Respiratory: reports: Dyspnea, Cough, Wheezing GI: denies: Abdominal Pain, Vomiting, Diarrhea, Hematemesis, Bloody / black stool : denies: Dysuria, Frequency Skin: denies: Rash, Lesions Musculoskeletal: reports: Extremity swelling (chronic with wraps to ankles.) Neurologic: reports: Generalized weakness. denies: Focal weakness, Numbness PD PAST MEDICAL HISTORY - Past Medical History Cardiovascular: Hypertension, Peripheral Vascular Disease Respiratory: Asthma Neuro: Peripheral neuropathy GI: GERD, Diverticulitis : Incontinence HEENT: Chronic vision loss, Chronic hearing loss Psych: Anxiety Musculoskeletal: None, Other Derm: Herpes zoster - Past Surgical History Past Surgical History: Yes General: Colonoscopy HEENT: Tonsil/Adenoidectomy - Present Medications Home Medications: Ambulatory Orders Medication Instructions Recorded Confirmed Losartan Potassium 50 mg PO DAILY 10/09/15 03/27/17 Oxycodone HCl 5 mg PO BID 10/09/15 03/27/17 Cholecalciferol (Vitamin D3) 5,000 units PO DAILY 01/01/16 02/09/17 [Vitamin D3] Cyanocobalamin (Vitamin B-12) 5,000 mcg SL DAILY 01/01/16 02/09/17 [Vitamin B-12] Glucosam/Chond/MSM/[place]/Hyal 1 - 2 tab PO DAILY 01/01/16 02/09/17 [Glucosamine-Chondr Complex Tab] Potassium Gluconate 5 meq PO DAILY 01/01/16 02/09/17 Alpha Lipoic Acid [Lipoic Acid] 600 mg PO DAILY 05/06/16 02/09/17 Cinnamon Bark [Cinnamon] 1,500 mg PO DAILY 05/06/16 02/09/17 Garlic 1,000 mg PO DAILY 05/06/16 02/09/17 Lactobacillus Acidophilus 1 each PO DAILY 05/06/16 02/09/17 [Acidophilus] [place]-3/Dha/Epa/Fish Oil [Fish Oil 1,000 mg PO BID 05/06/16 02/09/17 1,000 mg Softgel] Ubidecarenone/Vitamin E Mixed 1 each PO DAILY 05/06/16 02/09/17 [Ial98-Mio E 100 mg-10 Unit Sfg] Vitamin B Complex 1 each PO DAILY 05/06/16 02/09/17 Vitamin E 400 unit PO DAILY 05/06/16 02/09/17 Albuterol Sulfate [Proair 2 puffs INH Q4H PRN 02/09/17 02/09/17 Respiclick] Caffeine 200 mg PO DAILY 02/09/17 02/09/17 Echinacea Root/Goldenseal Root 1 each PO DAILY 02/09/17 02/09/17 [Echinac-Goldenseal 250-250 mg] Multivitamin [Multivitamins] 1 each PO DAILY 02/09/17 02/09/17 Furosemide [Lasix] 80 mg PO DAILY #60 tablet 02/14/17 predniSONE [Prednisone] 40 mg PO DAILY #14 tablet 02/14/17 Oxybutynin [Oxytrol] 3.9 patch TOP Q3D 03/27/17 - Allergies Allergies/Adverse Reactions: Allergies Allergy/AdvReac Type Severity Reaction Status Date / Time aloe Allergy Unknown Verified 10/09/15 16:32 - Social History Does the pt smoke?: No Smoking Status: Never smoker Does the pt drink ETOH?: No Does the pt have substance abuse?: No - Family History Family history: reports: Non contributory - Immunizations Immunizations are current?: Yes - POLST Patient has POLST: No POLST Status: DNR PD ED PE NORMAL - Vitals Vital signs reviewed: Yes - General General: Alert and oriented X 3, No acute distress, Well developed/nourished ( obese and wanting to sit in wheelchair. ) - HEENT HEENT: Ears normal, Pharynx benign - Neck Neck: Supple, no meningeal sign, No adenopathy - Cardiac Cardiac: RRR, No murmur - Respiratory Respiratory: No: Clear bilaterally (wheezing noted throughout. Coarse sounds more right lower. No retractions. ) - Abdomen Abdomen: Soft, Non tender, Other (obese) - Female Female : Deferred - Back Back: No CVA TTP - Derm Derm: Normal color, Warm and dry - Extremities Extremities: No deformity, No tenderness to palpate, Other - Neuro Neuro: Alert and oriented X 3 (but slightly somnolent), No motor deficit, No sensory deficit, Normal speech Eye Opening: Spontaneous Motor: Obeys Commands Verbal: Oriented GCS Score: 15 - Psych Psych: Normal mood Results - Vitals Vitals: Vital Signs - 24 hr 03/27/17 03/27/17 03/27/17 16:22 17:37 17:48 Temperature 37.1 C Heart Rate 91 82 Respiratory 26 H 18 Rate Blood Pressure 144/74 H 105/65 O2 Saturation 84 L 94 03/27/17 03/27/17 03/27/17 18:36 18:51 20:11 Temperature Heart Rate 77 69 80 Respiratory 14 20 20 Rate Blood Pressure 130/64 135/85 H O2 Saturation 94 94 Oxygen O2 Source Nasal cannula Oxygen Flow Rate 3 - EKG (time done) 16:25 Rate: Rate (enter#) (61) Rhythm: NSR [place]: Normal Intervals: Normal [place] QRS: Normal Ischemia: Normal ST segments, Non specific changes. No: ST elevation c/w ischemia, ST depression, Hyperacute T waves - Labs Labs: Laboratory Tests 03/27/17 03/27/17 03/27/17 17:20 17:20 17:20 WBC 7.9 RBC 5.44 H Hgb 13.0 Hct 42.3 MCV 77.8 L MCH 24.0 L MCHC 30.8 L RDW 21.6 H Plt Count 319 MPV 7.4 L Neut # 6.2 Lymph # 0.9 L [place] # 0.6 Eos # 0.1 Baso # 0.0 Absolute Nucleated RBC 0.01 Nucleated RBC % 0.1 Manual Slide Review Indicated WBC Morphology NORMAL APPEARANCE Platelet Estimate NORMAL (130-450,000) Platelet Morphology NORMAL APPEARANCE RBC Morph Micro Appear 2+ MICROCYTOSIS Sodium 140 Potassium 3.9 Chloride 97 L Carbon Dioxide 36 H Anion Gap 7.0 BUN 33 H Creatinine 0.6 Estimated GFR (MDRD) 97 Glucose 92 Calcium 9.2 Magnesium Total Bilirubin 0.5 AST 27 ALT 28 Alkaline Phosphatase 60 Troponin I < 0.04 B-Natriuretic Peptide Total Protein 6.8 Albumin 3.4 Globulin 3.4 Albumin/Globulin Ratio 1.0 Lipase 13 L 03/27/17 03/27/17 17:20 17:20 WBC RBC Hgb Hct MCV MCH MCHC RDW Plt Count MPV Neut # Lymph # [place] # Eos # Baso # Absolute Nucleated RBC Nucleated RBC % Manual Slide Review WBC Morphology Platelet Estimate Platelet Morphology RBC Morph Micro Appear Sodium Potassium Chloride Carbon Dioxide Anion Gap BUN Creatinine Estimated GFR (MDRD) Glucose Calcium Magnesium 2.2 Total Bilirubin AST ALT Alkaline Phosphatase Troponin I B-Natriuretic Peptide 597 H Total Protein Albumin Globulin Albumin/Globulin Ratio Lipase - Rads (name of study) chest Radiology: Prelim report reviewed, EMP read contemporaneously (some pulmonary congestion. No effusion. No infiltrates. ) PD MEDICAL DECISION MAKING - ED course Complexity details: reviewed results, considered differential, d/w patient Departure - Departure Disposition: 66 [facility] DC/Xfer Clinical Impression: Bronchitis, Hypoxia Dyspnea Qualifiers: Dyspnea type: orthopnea Qualified Code(s): R06.01 - Orthopnea Congestive heart failure Qualifiers: Congestive heart failure type: diastolic Congestive heart failure chronicity: acute on chronic Qualified Code(s): I50.33 - Acute on chronic diastolic ( congestive) heart failure Condition: Stable Record reviewed to determine appropriate education?: Yes Discharge Date/Time: 03/27/17 21:27
[2017-03-27 17:37] LABS: BASOPHILS % (AUTO) 0.5 %; EOSINOPHILS # (AUTO) 0.1 10^3/uL (0.0-0.7); EOSINOPHILS % (AUTO) 1.4 %; LYMPHOCYTES # (AUTO) 0.9 10^3/uL (1.5-3.5); LYMPHOCYTES % (AUTO) 11.6 %; MEAN CORPUSCULAR HGB CONC 30.8 g/dL (32.0-36.0); MEAN CORPUSCULAR VOLUME 77.8 fL (81.0-99.0); MEAN PLATELET VOLUME 7.4 fL (7.9-10.8); MONOCYTES # (AUTO) 0.6 10^3/uL (0.0-1.0); MONOCYTES % (AUTO) 8.1 %; NEUTROPHILS # (AUTO) 6.2 10^3/uL (1.5-6.6); NEUTROPHILS % (AUTO) 78.4 %; PLT - PLATELET COUNT 319 10^3/uL (130-450); RED BLOOD COUNT 5.44 10^6/uL (4.20-5.40); RED CELL DISTRIBUTION WIDTH 21.6 % (12.0-15.0); WHITE BLOOD COUNT 7.9 x10^3/uL (4.8-10.8)
[2017-03-27 17:47] LABS: ALBUMIN 3.4 g/dL (3.2-5.5); BILIRUBIN,TOTAL 0.5 mg/dL (0.2-1.0); CALCIUM 9.2 mg/dL (8.5-10.3); CREATININE 0.6 mg/dL (0.4-1.0); TOTAL PROTEIN 6.8 g/dL (6.7-8.2)
[2017-03-27 17:59] LABS: PLATELET ESTIMATE, MANUAL NORMAL (130-450,000) (NORMAL); PLATELET MORPHOLOGY NORMAL APPEARANCE (NORMAL)
[2017-03-27] MEDS ORDERED: BUMETANIDE 1 MG/4 ML VIAL IVP STA (18:16)
[2017-03-27] MEDS ORDERED: ALBUTEROL NEB 2.5 MG/3 ML INH STA (18:16)
[2017-03-27] MEDS ORDERED: AZITHROMYCIN 250 MG TABLET PO STA (19:21)
[2017-03-27] MEDS ORDERED: cefTRIAXone 500 MG VIAL IVP STA (19:21)
[2017-03-27] MEDS ORDERED: DEXAMETHASONE 10 MG/ML VIAL IVP STA (19:21)
[2017-03-27] MEDS ORDERED: MORPHINE 2 MG/ML CARPUJECT IVP PRN (20:49)
[2017-03-27] MEDS ORDERED: IBUPROFEN 600 MG TABLET PO PRN (20:49)
[2017-03-27] MEDS ORDERED: SODIUM CHLORIDE FLUSH 0.9% 10 ML SYRINGE IVP PRN (20:49)
[2017-03-27] MEDS ORDERED: ACETAMINOPHEN 325 MG TABLET PO PRN (20:49)
[2017-03-27] MEDS ORDERED: PROCHLORPERAZINE 10 MG/2 ML VIAL IVP PRN (20:49)
[2017-03-27] MEDS: OMEGA-3 ACID ETHYL ESTERS 1 GM CAPSULE PO SCH (21:59)
[2017-03-27] MEDS: SODIUM CHLORIDE FLUSH 0.9% 10 ML SYRINGE IVP SCH (22:00)
[2017-03-27] MEDS: oxyCODONE 5 MG TABLET PO SCH (22:00)
[2017-03-27] MEDS: FUROSEMIDE 40 MG/4 ML VIAL IVP SCH (22:00)
[2017-03-27] MEDS: LEVALBUTEROL 1.25 MG/3 ML NEB INH SCH (22:21)
[2017-03-27] MEDS ORDERED: guaiFENesin/DEXTROMETHORPHAN 10 ML UDC PO PRN (22:39)
[2017-03-27] MEDS: guaiFENesin 600 MG TABLET PO SCH (22:52)
--- NOTE | 2017-03-28 03:34 | HISTORY & PHYSICAL EXAMINATION ---
DATE OF SERVICE: 03/27/2017 Physician: Leticia Lee MD HISTORY OF PRESENT ILLNESS: This is a 76-year-old, white female with a history of obesity, diastolic heart failure diagnosed by echo 2 months ago, history of peripheral vascular disease for which she has had peripheral interventions done at an outside facility, history of hypertension, COPD, anxiety, GERD, diverticulitis, urinary incontinence, peripheral neuropathy, hearing loss. The patient was admitted here 1-1/2 months ago for a new onset of PND and orthopnea, and was found to have diastolic heart failure, and was resistant to education regarding salt and water restrictions, good blood pressure control and risk factor management. The patient presents now with a 4-day history of feeling unwell, nasal congestion, nonproductive cough, mild shortness of breath, worsening leg edema. She was falling asleep in her rolling walker-chair because of overall exhaustion and fatigue, and this led to her not being on her scheduled medications, she admits. She came to the ER because of this and was found to have desaturations to 84% on room air and with a significant cough. She is being admitted for bronchitis and recurrence of CHF. PAST MEDICAL HISTORY: Obesity, cor pulmonale, pulmonary hypertension, diastolic LV dysfunction, peripheral vascular disease with peripheral interventions over the last 1 or 2 months, COPD, peripheral neuropathy, GERD, diverticulitis, urinary incontinence , hearing loss, and anxiety. ALLERGIES: ALOE, WHICH GAVE AN UNKNOWN REACTION. MEDICATIONS AT HOME 1. Losartan 50 mg daily. 2. Oxycodone 5 mg b.i.d. 3. Vitamin D3 5000 units daily. 4. Vitamin B12 5000 mcg daily. 5. Glucosamine chondroitin 1 to 2 tabs daily. 6. Potassium gluconate 5 mEq daily. 7. Lipoic acid 600 mg daily. 8. Cinnamon bark 1500 mg daily. 9. Garlic 1000 mg daily. 10. Acidophilus 1 tablet daily. 11. [place] 3 fish oil 1000 mg b.i.d. 12. CoQ10 one tablet daily. 13. Vitamin B complex 1 tablet daily. 14. Vitamin E 400 units daily. 15. ProAir inhaler 2 puffs q.4h p.r.n. 16. Echinacea root 1 tablet daily. 17. Caffeine 200 mg daily. 18. Multivitamin daily. 19. Lasix 80 mg p.o. daily. 20. Prednisone 40 mg p.o. daily. 21. Oxybutynin patch 3.9 mg topically every 3 days. FAMILY HISTORY: No inherited diseases. SOCIAL HISTORY: The patient never smoked, drinks no alcohol, uses no illicit drugs. The patient lives with her daughter, who is her caregiver. The patient requires a seated walker for ambulation in the house and does not drive. REVIEW OF SYSTEMS: There has been no fever or flu-like symptoms, nausea, vomiting or diarrhea. A comprehensive review of systems was performed and the positives are as listed here. PHYSICAL EXAMINATION GENERAL: Elderly, white female supine in bed with head of bed elevated. She has a chronic, wet cough that is nonproductive. VITAL SIGNS: Blood pressure 135/85, pulse of 80 in sinus rhythm, afebrile, 94% saturation on 3 liters nasal cannula. HEENT: Unremarkable, except she has erythematous nares and a wet cough. Oral mucosa is moist. NECK: Shows no JVD. No carotid bruits, thyromegaly or adenopathy. CHEST: Diminished breath sounds diffusely. HEART: Heart sounds are normal. No audible murmur. ABDOMEN: Obese. I cannot rule out organomegaly or ascites. EXTREMITIES: Show 4+ tense edema to the hips. She has venous stasis changes of her feet. Her shins are bandaged. She has a bandage over the left great toe, which has some dried serous drainage. NEUROLOGIC: Intact. LABORATORIES: Normal electrolytes. BUN 33, creatinine 0.6, magnesium 2.2. Normal liver tests. Troponin less than 0.04. BNP 597 (her baseline from that last admission was in the 500s, then came down to the 140s). White blood count 7.9 with a normal differential, hemoglobin 13 with an MCV of 77, platelet count normal. She has an abnormal platelet morphology and RBC morphology with polychromasia, hypochromasia, and microcytosis. Chest x-ray: Pulmonary vascular congestion. EKG: Normal sinus rhythm. Biphasic T waves in the lateral leads and poor R-wave progression. IMPRESSION/DIAGNOSES: 1. [id number] diastolic heart failure. The exacerbation is likely from her noncompliance with medications and admitted noncompliance to a salt and fluid restricted diet. 2. Bronchitis. 3. Chronic obstructive pulmonary disease. 4. Cor pulmonale with pulmonary hypertension history. 5. Peripheral vascular disease. PLAN: Continue with her nebulizers and increase to a stress dose of steroids. Continue with IV antibiotics for bronchitis after obtaining sputum and blood cultures. Begin IV diuresis. Follow her weight, magnesium, BUN, creatinine and potassium. Cycle troponins to rule out an HI. She needs further CHF teaching regarding salt and water restriction. Continue with her other prehospitalization medications. DEEP VENOUS THROMBOSIS PROPHYLAXIS: Lovenox. CODE STATUS: DNR. ATTESTATION: The patient is expected to be discharged or transferred to another facility within 96 hours: Yes. TD: 03/28/2017 03:32 MTDDona
[2017-03-28 05:47] LABS: CALCIUM 8.8 mg/dL (8.5-10.3); CREATININE 0.7 mg/dL (0.4-1.0); MAGNESIUM 2.2 mg/dL (1.7-2.8)
[2017-03-28] MEDS: SODIUM CHLORIDE FLUSH 0.9% 10 ML SYRINGE IVP SCH ×3 (06:01→19:42)
[2017-03-28] MEDS: LEVALBUTEROL 1.25 MG/3 ML NEB INH SCH ×2 (07:15→19:50)
--- NOTE | 2017-03-28 07:34 | PROVIDER PROGRESS NOTE ---
Subjective - Prog Note Date Prog Note Date: 03/28/17 Prog Note Time: 07:34 - Subjective Pt reports feeling: Improved Subjective: Patient was somewhat difficult to arouse today, that became improved after oxygen was removed for a few moments, then replaced. Patient has displayed periods of confusion or altered mental status and narcotics have been limited. She denies chest pain, increased SOB, N/V or a new cough. She has mild sputum production. Current Medications - Current Medications Current Medications: Active Medications Acetaminophen (Tylenol) 650 mg PO Q4HR PRN PRN Reason: FEVER > 100.5 F Cholecalciferol (Vitamin D3) 5,000 unit PO DAILY [facility] Last Admin: 03/28/17 11:06 Dose: 5,000 unit Cilostazol (Pletal) 100 mg PO BID [facility] Enoxaparin Sodium (Lovenox) 40 mg SUBQ DAILY [facility] Last Admin: 03/28/17 11:11 Dose: Not Given Famotidine (Pepcid) 20 mg PO DAILY [facility] Last Admin: 03/28/17 11:09 Dose: Not Given Furosemide (Lasix Inj 40 Mg Vial) 40 mg IVP BID [facility] Last Admin: 03/28/17 10:09 Dose: 40 mg Guaifenesin (Mucinex) 600 mg PO BID [facility] Last Admin: 03/28/17 11:06 Dose: 600 mg Guaifenesin (Robitussin Dm) 10 ml PO Q6HR PRN PRN Reason: Cough Last Admin: 03/27/17 23:01 Dose: 10 ml Ceftriaxone Sodium 1 gm/ (Sodium Chloride) 100 mls @ 200 mls/hr IV Q24H TED Azithromycin 500 mg/ Sodium (Chloride) 250 mls @ 250 mls/hr IV DAILY [facility] Last Infusion: 03/28/17 12:58 Dose: Infused Ibuprofen (Motrin) 600 mg PO Q6HR PRN PRN Reason: Pain 1 to 4 Lactobacillus Rhamnosus (Culturelle) 1 cap PO DAILY [facility] Last Admin: 03/28/17 11:06 Dose: 1 cap Levalbuterol HCl (Xopenex) 1.25 mg INH RTBID [facility] Last Admin: 03/28/17 07:15 Dose: 1.25 mg Losartan Potassium (Cozaar) 50 mg PO DAILY [facility] Last Admin: 03/28/17 11:09 Dose: Not Given Methylprednisolone (Solu-Medrol (40mg Vial)) 40 mg IVP BID [facility] Last Admin: 03/28/17 10:54 Dose: 40 mg Morphine Sulfate (Morphine (Carpuject)) 2 mg IVP Q2HR PRN PRN Reason: Pain 8 to 10 Multivitamins (Theragran) 1 tab PO DAILY [facility] Last Admin: 03/28/17 11:06 Dose: 1 tab [id number] Ethyl Esters (Lovaza) 1 gm PO BID [facility] Last Admin: 03/28/17 11:06 Dose: 1 gm Oxycodone HCl (Roxicodone) 5 mg PO BID [facility] Last Admin: 03/28/17 15:38 Dose: 5 mg Cyanocobalamin 5000 (Mcg Tablet) 1 each PO DAILY [facility] Last Admin: 03/28/17 12:06 Dose: 1 each Polyethylene Glycol (Miralax) 17 gm PO DAILY [facility] Last Admin: 03/28/17 11:09 Dose: Not Given Prochlorperazine Edisylate (Compazine Inj) 10 mg IVP Q6HR PRN PRN Reason: Nausea / Vomiting Sodium Chloride (Normal Saline Flush 0.9%) 10 ml IVP PRN PRN PRN Reason: NEEDED PER PROVIDER ORDERS Sodium Chloride (Normal Saline Flush 0.9%) 10 ml IVP Q8HR [facility] Last Admin: 03/28/17 13:01 Dose: 10 ml Losartan Potassium 50 mg PO DAILY 10/09/15 Cyanocobalamin (Vitamin B-12) [Vitamin B-12] 5,000 mcg SL DAILY 01/01/16 Glucosam/Chond/MSM/[place]/Hyal [Glucosamine-Chondr Complex Tab] 1 - 2 tab PO DAILY 01/01/16 Alpha Lipoic Acid [Lipoic Acid] 600 mg PO DAILY 05/06/16 Cinnamon Bark [Cinnamon] 1,500 mg PO DAILY 05/06/16 Garlic 1,000 mg PO DAILY 05/06/16 Lactobacillus Acidophilus [Acidophilus] 1 each PO BID 05/06/16 [place]-3/Dha/Epa/Fish Oil [Fish Oil 1,000 mg Softgel] 1,000 mg PO BID 05/06/16 Vitamin B Complex 1 each PO DAILY 05/06/16 Vitamin E 1,000 unit PO DAILY 05/06/16 Echinacea Root/Goldenseal Root [Echinac-Goldenseal 250-250 mg] 1 each PO DAILY 02/09/17 Albuterol Sulfate [Proair Hfa Inhaler] 2 puffs INH Q4H PRN 03/28/17 Ceramides 1,3,6-11 [Cerave] 1 applic TOP BID 03/28/17 Cholecalciferol (Vitamin D3) [Vitamin D3] 5,000 units PO DAILY 03/28/17 Furosemide 20 mg PO DAILY 03/28/17 Multivitamin W/Minerals [Theragran M] 1 tab PO DAILY 03/28/17 Oxybutynin [Oxytrol] 3.9 patch TOP Q3D 03/28/17 Potassium Gluconate 99 mg PO DAILY 03/28/17 Triamcinolone 0.1% Cream [Kenalog 0.1% Cream] 1 applic TOP BID 03/28/17 Ubidecarenone [Co Q-10] 10 mg PO DAILY 03/28/17 oxyCODONE [Roxicodone] 5 mg PO BID 03/28/17 Objective - Vital Signs/Intake & Output Reviewed Vital Signs: Yes Vital Signs: Vital Signs x48h Temp Pulse Pulse Resp BP Pulse Ox 03/28/17 07:15 76 16 03/28/17 00:10 36.7 C 80 20 134/58 H 94 Intake & Output: Intake & Output 03/25/17 03/26/17 03/27/17 03/28/17 23:59 23:59 23:59 23:59 Intake Total 250 Output Total 600 Balance -350 - Objective General Appearance: positive: Alert, Moderate distress, Lethargic Eyes Bilateral: positive: Normal inspection, PERRL ENT: positive: ENT inspection nml, Pharynx nml, Dry mucous membranes, Other ( right ear unable to visualize tympanic membrane) Neck: positive: Nml inspection, Thyroid nml, No JVD Respiratory: positive: Chest non-tender, No respiratory distress Cardiovascular: positive: No gallop, Irregularly irregular, Systolic murmur, Decreased pulse(s) Peripheral Pulses: 1+ Radial (R), 1+ Radial (L) Abdomen: positive: Non-tender, Nml bowel sounds, Hepatomegaly, Other (rounded, obese, soft.) Back: positive: Nml inspection Skin: positive: No rash, Warm, Dry, Pallor Extremities: positive: Pedal edema, Joint swelling, Other (chronic vascular complications, long standing wounds.) Neurologic/Psychiatric: positive: Oriented x3, Weakness, Sensory loss, Depressed mood/affect, Other (profound [place].) Reflexes: Bicep (R): 1+, Bicep (L): 1+ - Lab Results Fish Bones: 03/27/17 17:20 03/28/17 05:15 Other Labs: Lab Results x24hrs 03/28/17 03/28/17 Range/Units 05:15 01:30 Sodium 139 (135-145) mmol/L Potassium 4.2 (3.5-5.0) mmol/L Chloride 92 L (101-111) mmol/L Carbon Dioxide 38 H (21-32) mmol/L Anion Gap 9.0 (6-13) BUN 28 H (6-20) mg/dL Creatinine 0.7 (0.4-1.0) mg/dL Estimated GFR (MDRD) 82 L (>89) Glucose 147 H (70-100) mg/dL Calcium 8.8 (8.5-10.3) mg/dL Magnesium 2.2 (1.7-2.8) mg/dL Iron 12 L (28-170) ug/dL TIBC 433 (250-450) ug/dL % Saturation 3 L (20-50) % Transferrin 309 (192-382) mg/dL Influenza A (Rapid) Negative (Negative) Influenza B (Rapid) Negative (Negative) Influenza Types A,B Ag - - Diagnostic Imaging Diagnostic Imaging Results: positive: Final report reviewed Diagnostic Imaging Comments: EXAM: CHEST RADIOGRAPHY EXAM DATE: 03/27/2017 05:01 PM. CLINICAL HISTORY: Hypoxia. COMPARISON: 02/09/2017 chest x-ray. TECHNIQUE: 1 view. FINDINGS: Lungs/Pleura: Pulmonary vascular congestion without overt edema. No pleural effusion or pneumothorax. Mediastinum: Within exam limitations, the cardiomediastinal contour is normal. Other: None. IMPRESSION: Pulmonary vascular congestion. No overt edema or focal air space disease. Assessment/Plan - Problem List (1) Acute on chronic diastolic heart failure Impression: An echocardiogram was completed during her last admission on 02/11/17 and shows mild concentric LVH with normal systolic function, EF of 60%. There is mild diastolic dysfunction and the LA is moderately dilated. Mild to moderate pulmonary hypertension, RVSP 45mmHg. The right ventricle is normal in size and function. Patient is prescribed furosemide and an ARB at home. Plan: Continue medical management, may consider starting Spironolactone for pulmonary HTN. (2) Cor pulmonale (chronic) Impression: An echocardiogram was completed during her last admission on 02/11/17 and shows mild concentric LVH with normal systolic function, EF of 60%. There is mild diastolic dysfunction and the LA is moderately dilated. Mild to moderate pulmonary hypertension, RVSP 45mmHg. The right ventricle is normal in size and function. Patient is prescribed furosemide at home. Plan: May consider Spironolactone and furosemide is prescribe IV for this hospital stay. (3) Bronchitis Impression: Patient has a history of COPD and bronchitis. Patient continues to have a cough and has required oxygen since the time of admission. Plan: Continue antibiotics and monitor for signs of worsening. (4) PVD (peripheral vascular disease) Impression: Patient is well known to our [facility] clinic and sees wound care for her chronic BLE wounds. She has seen a peripheral vascular surgeon in the past. On the LLE, there are at least 2 open wounds that have been gradually becoming worse. Plan: Start cilostazol for improved BLE circulation. Patient should not chew this medication or any prescribed medications. (5) COPD (chronic obstructive pulmonary disease) Impression: Patient has a long history of this disease and can be evidenced by most resent echocardiogram. In addition, she is noted to have pulmonary hypertension which suggest/confirms a long-standing history. Patient DOES not take inhalers at home, but needs to consider better management. Plan: Long acting beta antagonist, rescue inhaler and an anticholinergic will be prescribed both here and at the time of discharge.
[2017-03-28 08:49] LABS: HB2 TOTAL 15.1 g/dL; HEMOGLOBIN A1C 0.73 g/dL; HEMOGLOBIN A1C % 6.6 % (4.6-6.2)
[2017-03-28] MEDS ORDERED: LOSARTAN 50 MG TABLET PO SCH (09:00)
[2017-03-28] MEDS ORDERED: CYANOCOBALAMIN 500 MCG TABLET PO SCH (09:00)
[2017-03-28] MEDS: FUROSEMIDE 40 MG/4 ML VIAL IVP SCH ×2 (10:09→20:48)
[2017-03-28] MEDS: methylPREDNISolone SUCCINATE 40 MG/ML VIAL IVP SCH ×2 (10:54→20:47)
[2017-03-28] MEDS: AZITHROMYCIN INJ 500 MG in SODIUM CHLORIDE 0.9% 250 ML IV SCH (10:59)
[2017-03-28] MEDS: MULTIVITAMIN TABLET PO SCH (11:06)
[2017-03-28] MEDS: CHOLECALCIFEROL 5,000 UNIT CAPSULE PO SCH (11:06)
[2017-03-28] MEDS: LACTOBACILLUS RHAMNOSUS GG CAPSULE PO SCH (11:06)
[2017-03-28] MEDS: OMEGA-3 ACID ETHYL ESTERS 1 GM CAPSULE PO SCH ×2 (11:06→20:48)
[2017-03-28] MEDS: ENOXAPARIN 40 MG/0.4 ML SYRINGE SUBQ SCH ×2 (11:06→11:11)
[2017-03-28] MEDS: guaiFENesin 600 MG TABLET PO SCH ×2 (11:06→20:47)
[2017-03-28] MEDS: POLYETHYLENE GLYCOL 3350 17 GM PACKET PO SCH (11:09)
[2017-03-28] MEDS: FAMOTIDINE 20 MG TABLET PO SCH (11:09)
[2017-03-28] MEDS: oxyCODONE 5 MG TABLET PO SCH ×3 (11:09→20:43)
[2017-03-28] MEDS: CYANOCOBALAMIN 5000 MCG TABLET PO SCH (12:06)
[2017-03-28] MEDS: CILOSTAZOL 100 MG TABLET PO SCH ×2 (19:08→20:42)
[2017-03-28] MEDS: cefTRIAXone 1 GM in SODIUM CHLORIDE 0.9% MINIBAG 100 ML IV SCH (19:42)
--- NOTE | 2017-03-29 06:09 | CT Preliminary Report ---
Exam: CT HEAD W/O STROKE PROTOCOL IMPRESSION: No acute intracranial process. ASPECTS score 10. RADIA The call report notification system was initiated by Dr. Jeannette Pavon at 05:55 hrs on 03/29/17. The above findings were discussed with Dr. Lee by Dr. Jeannette Pavon at 06:08 hrs on . SITE ID: [id number]
--- NOTE | 2017-03-29 06:14 | CT Report ---
EXAM: CT HEAD EXAM DATE: 03/29/2017 05:50 AM. CLINICAL HISTORY: Slurred speech. COMPARISON: None. TECHNIQUE: Multiaxial CT images were obtained from the foramen magnum to the vertex. Reformats: Coron al. IV contrast: None. In accordance with CT protocol optimization, one or more of the following dose reduction techniques w ere utilized for this exam: automated exposure control, adjustment of mA and/or KV based on patient s ize, or use of iterative reconstructive technique. FINDINGS: Parenchyma: No intraparenchymal hemorrhage. No evidence of mass, midline shift, or CT findings of acu te infarction. Joy-white differentiation is distinct. Extraaxial Spaces: Normal for age. No subdural or epidural collections identified. Ventricles: The ventricles and cortical sulci are mildly enlarged, consistent with age-related tissue loss. Sinuses and orbits: Imaged paranasal sinuses, orbits, and mastoids show no significant abnormality. Bones: No evidence of fracture or calvarial defect. Other: Mild intracranial atherosclerosis is noted. IMPRESSION: No acute intracranial process. ASPECTS score 10. RADIA The call report notification system was initiated by Dr. Jeannette Pavon at 05:55 hrs on 03/29/17. The above findings were discussed with Dr. Lee by Dr. Jeannette Pavon at 06:08 hrs on . Referring Provider Line: [phone] SITE ID: [id number]
[2017-03-29] MEDS: SODIUM CHLORIDE FLUSH 0.9% 10 ML SYRINGE IVP SCH ×3 (06:47→21:22)
[2017-03-29] MEDS: POLYETHYLENE GLYCOL 3350 17 GM PACKET PO SCH (07:52)
[2017-03-29] MEDS: ENOXAPARIN 40 MG/0.4 ML SYRINGE SUBQ SCH (07:53)
[2017-03-29] MEDS: FAMOTIDINE 20 MG TABLET PO SCH (07:53)
[2017-03-29] MEDS: LEVALBUTEROL 1.25 MG/3 ML NEB INH SCH ×2 (09:20→19:30)
[2017-03-29] MEDS: LACTOBACILLUS RHAMNOSUS GG CAPSULE PO SCH (09:47)
[2017-03-29] MEDS: OMEGA-3 ACID ETHYL ESTERS 1 GM CAPSULE PO SCH ×2 (09:47→20:49)
[2017-03-29] MEDS: CILOSTAZOL 100 MG TABLET PO SCH ×2 (09:48→20:52)
[2017-03-29] MEDS: CHOLECALCIFEROL 5,000 UNIT CAPSULE PO SCH (09:48)
[2017-03-29] MEDS: guaiFENesin 600 MG TABLET PO SCH ×2 (09:48→20:49)
[2017-03-29] MEDS: MULTIVITAMIN TABLET PO SCH (09:48)
[2017-03-29] MEDS: CYANOCOBALAMIN 5000 MCG TABLET PO SCH (09:49)
[2017-03-29] MEDS: SPIRONOLACTONE 25 MG TABLET PO SCH (09:49)
[2017-03-29] MEDS: FUROSEMIDE 40 MG/4 ML VIAL IVP SCH ×2 (09:49→20:53)
[2017-03-29] MEDS: AZITHROMYCIN INJ 500 MG in SODIUM CHLORIDE 0.9% 250 ML IV SCH (09:53)
[2017-03-29] MEDS: methylPREDNISolone SUCCINATE 40 MG/ML VIAL IVP SCH ×2 (10:02→21:57)
[2017-03-29] MEDS: oxyCODONE 5 MG TABLET PO SCH ×2 (10:07→21:45)
[2017-03-29] MEDS: INSULIN GLARGINE 300 UNIT/3 ML PEN SUBQ SCH (10:19)
--- NOTE | 2017-03-29 17:02 | PROVIDER PROGRESS NOTE ---
Subjective - Prog Note Date Prog Note Date: 03/29/17 Prog Note Time: 08:00 - Subjective Pt reports feeling: Improved Subjective: Patient has no complaints. She denies increased SOB, chest pain-except related to heartburn of which she has been refusing the H2 carlitos, N/V or increased cough. Current Medications - Current Medications Current Medications: Active Medications Acetaminophen (Tylenol) 650 mg PO Q4HR PRN PRN Reason: FEVER > 100.5 F Cholecalciferol (Vitamin D3) 5,000 unit PO DAILY [facility] Last Admin: 03/30/17 10:21 Dose: 5,000 unit Cilostazol (Pletal) 100 mg PO BID [facility] Last Admin: 03/30/17 10:21 Dose: 100 mg Enoxaparin Sodium (Lovenox) 40 mg SUBQ DAILY [facility] Last Admin: 03/30/17 10:19 Dose: Not Given Famotidine (Pepcid) 20 mg PO DAILY [facility] Last Admin: 03/30/17 10:19 Dose: Not Given Furosemide (Lasix Inj 40 Mg Vial) 40 mg IVP BID [facility] Last Admin: 03/30/17 10:19 Dose: 40 mg Guaifenesin (Mucinex) 600 mg PO BID [facility] Last Admin: 03/30/17 11:08 Dose: 600 mg Guaifenesin (Robitussin Dm) 10 ml PO Q6HR PRN PRN Reason: Cough Last Admin: 03/27/17 23:01 Dose: 10 ml Ceftriaxone Sodium 1 gm/ (Sodium Chloride) 100 mls @ 200 mls/hr IV Q24H [facility] Last Infusion: 03/29/17 21:10 Dose: Infused Azithromycin 500 mg/ Sodium (Chloride) 250 mls @ 250 mls/hr IV DAILY [facility] Last Infusion: 03/30/17 11:20 Dose: Infused Ibuprofen (Motrin) 600 mg PO Q6HR PRN PRN Reason: Pain 1 to 4 Insulin Glargine (Lantus Solostar) 10 unit SUBQ DAILY [facility] Last Admin: 03/30/17 10:22 Dose: 10 unit Lactobacillus Rhamnosus (Culturelle) 1 cap PO DAILY [facility] Last Admin: 03/30/17 10:21 Dose: 1 cap Levalbuterol HCl (Xopenex) 1.25 mg INH RTBID [facility] Last Admin: 03/30/17 07:25 Dose: 1.25 mg Losartan Potassium (Cozaar) 50 mg PO QPM [facility] Last Admin: 03/29/17 20:51 Dose: 50 mg Methylprednisolone (Solu-Medrol (40mg Vial)) 40 mg IVP BID [facility] Last Admin: 03/30/17 10:19 Dose: 40 mg Morphine Sulfate (Morphine (Carpuject)) 2 mg IVP Q2HR PRN PRN Reason: Pain 8 to 10 Multivitamins (Theragran) 1 tab PO DAILY [facility] Last Admin: 03/30/17 10:20 Dose: 1 tab [id number] Ethyl Esters (Lovaza) 1 gm PO BID [facility] Last Admin: 03/30/17 10:20 Dose: 1 gm Oxycodone HCl (Roxicodone) 5 mg PO BID [facility] Last Admin: 03/30/17 10:21 Dose: 5 mg Cyanocobalamin 5000 (Mcg Tablet) 1 each PO DAILY [facility] Last Admin: 03/30/17 10:22 Dose: 1 each Polyethylene Glycol (Miralax) 17 gm PO DAILY [facility] Last Admin: 03/30/17 10:17 Dose: Not Given Prochlorperazine Edisylate (Compazine Inj) 10 mg IVP Q6HR PRN PRN Reason: Nausea / Vomiting Sodium Chloride (Normal Saline Flush 0.9%) 10 ml IVP PRN PRN PRN Reason: NEEDED PER PROVIDER ORDERS Last Admin: 03/30/17 10:19 Dose: 10 ml Sodium Chloride (Normal Saline Flush 0.9%) 10 ml IVP Q8HR [facility] Last Admin: 03/30/17 10:18 Dose: 10 ml Spironolactone (Aldactone) 25 mg PO DAILY [facility] Last Admin: 03/30/17 10:21 Dose: 25 mg Losartan Potassium 50 mg PO DAILY 10/09/15 Lactobacillus Acidophilus [Acidophilus] 1 each PO BID 05/06/16 [place]-3/Dha/Epa/Fish Oil [Fish Oil 1,000 mg Softgel] 1,000 mg PO BID 05/06/16 Albuterol Sulfate [Proair Hfa Inhaler] 2 puffs INH Q4H PRN 03/28/17 Furosemide 20 mg PO DAILY 03/28/17 Oxybutynin [Oxytrol] 3.9 patch TOP Q3D 03/28/17 oxyCODONE [Roxicodone] 5 mg PO BID 03/28/17 Objective - Vital Signs/Intake & Output Reviewed Vital Signs: Yes Vital Signs: Vital Signs x48h Temp Pulse Pulse Pulse Pulse Resp Resp 03/29/17 15:46 36.9 C 86 18 03/29/17 13:18 37.3 C 90 20 03/29/17 11:26 96 18 03/29/17 09:20 87 20 BP BP BP Pulse Ox Pulse Ox 03/29/17 15:46 104/41 L 92 03/29/17 13:18 115/47 L 92 03/29/17 11:26 119/52 L 91 L 03/29/17 09:20 Intake & Output: Intake & Output 03/26/17 03/27/17 03/28/17 03/29/17 23:59 23:59 23:59 23:59 Intake Total 1066 850 Output Total 2400 200 Balance -1334 650 - Objective General Appearance: positive: Alert, Moderate distress, Anxious Eyes Bilateral: positive: Normal inspection, PERRL ENT: positive: ENT inspection nml, Pharynx nml, Dry mucous membranes - Lab Results Fish Bones: 03/30/17 05:32 03/30/17 05:32 Other Labs: Lab Results x24hrs 03/29/17 Range/Units 10:17 POC Whole Bld Glucose 151 H (70 - 100) mg/dL Assessment/Plan - Problem List (1) Acute on chronic diastolic heart failure Impression: An echocardiogram was completed during her last admission on 02/11/17 and shows mild concentric LVH with normal systolic function, EF of 60%. There is mild diastolic dysfunction and the LA is moderately dilated. Mild to moderate pulmonary hypertension, RVSP 45mmHg. The right ventricle is normal in size and function. Patient is prescribed furosemide and an ARB at home. Plan: Continue medical management, may consider starting Spironolactone for pulmonary HTN. (2) Cor pulmonale (chronic) Impression: An echocardiogram was completed during her last admission on 02/11/17 and shows mild concentric LVH with normal systolic function, EF of 60%. There is mild diastolic dysfunction and the LA is moderately dilated. Mild to moderate pulmonary hypertension, RVSP 45mmHg. The right ventricle is normal in size and function. Patient is prescribed furosemide at home. Plan: Spironolactone and furosemide are being used and patient will be prescribed as an outpatient. (3) Bronchitis Impression: Patient has a history of COPD and bronchitis. Patient continues to have a cough and has required oxygen since the time of admission. Plan: Continue antibiotics and monitor for signs of worsening. (4) PVD (peripheral vascular disease) Impression: Patient is well known to our [facility] clinic and sees wound care for her chronic BLE wounds. She has seen a peripheral vascular surgeon in the past. On the LLE, there are at least 2 open wounds that have been gradually becoming worse. Plan: Start cilostazol for improved BLE circulation. Patient should not chew this medication or any prescribed medications. (5) COPD (chronic obstructive pulmonary disease) Impression: Patient has a long history of this disease and can be evidenced by most resent echocardiogram. In addition, she is noted to have pulmonary hypertension which suggest/confirms a long-standing history. Patient DOES not take inhalers at home, but needs to consider better management. Plan: Long acting beta antagonist, rescue inhaler and an anticholinergic will be prescribed both here and at the time of discharge. (6) Diabetes mellitus type 2 in obese Impression: Patient had a HgA1C of 6.6, which is a diagnostic criteria for DM. Plan: Lantus 10 units started.
[2017-03-29] MEDS: cefTRIAXone 1 GM in SODIUM CHLORIDE 0.9% MINIBAG 100 ML IV SCH (20:34)
[2017-03-29] MEDS ORDERED: LOSARTAN 50 MG TABLET PO SCH (21:00)
[2017-03-29] MEDS ORDERED: SODIUM CHLORIDE FLUSH 0.9% 10 ML SYRINGE ONE (21:56)
[2017-03-30] MEDS: SODIUM CHLORIDE FLUSH 0.9% 10 ML SYRINGE IVP SCH ×2 (05:11→10:18)
[2017-03-30 06:06] LABS: BASOPHILS % (AUTO) 0.2 %; HGB - HEMOGLOBIN 12.7 g/dL (12.0-16.0); LYMPHOCYTES # (AUTO) 0.5 10^3/uL (1.5-3.5); LYMPHOCYTES % (AUTO) 7.4 %; MEAN CORPUSCULAR HEMOGLOBIN 23.5 pg (27.0-31.0); MEAN CORPUSCULAR HGB CONC 30.4 g/dL (32.0-36.0); MEAN CORPUSCULAR VOLUME 77.2 fL (81.0-99.0); MEAN PLATELET VOLUME 7.2 fL (7.9-10.8); MONOCYTES # (AUTO) 0.2 10^3/uL (0.0-1.0); MONOCYTES % (AUTO) 3.4 %; NEUTROPHILS # (AUTO) 6.4 10^3/uL (1.5-6.6); PLT - PLATELET COUNT 326 10^3/uL (130-450); RED BLOOD COUNT 5.42 10^6/uL (4.20-5.40); RED CELL DISTRIBUTION WIDTH 21.2 % (12.0-15.0); WHITE BLOOD COUNT 7.2 x10^3/uL (4.8-10.8)
[2017-03-30 06:13] LABS: ALBUMIN 3.2 g/dL (3.2-5.5); ALBUMIN/GLOBULIN RATIO 0.9 (1.0-2.2); BILIRUBIN,TOTAL 0.7 mg/dL (0.2-1.0); CALCIUM 8.9 mg/dL (8.5-10.3); CREATININE 0.6 mg/dL (0.4-1.0); TOTAL PROTEIN 6.6 g/dL (6.7-8.2)
[2017-03-30 06:49] LABS: PLATELET ESTIMATE, MANUAL NORMAL (130-450,000) (NORMAL)
[2017-03-30] MEDS: LEVALBUTEROL 1.25 MG/3 ML NEB INH SCH (07:25)
[2017-03-30] MEDS: POLYETHYLENE GLYCOL 3350 17 GM PACKET PO SCH (10:17)
[2017-03-30] MEDS: AZITHROMYCIN INJ 500 MG in SODIUM CHLORIDE 0.9% 250 ML IV SCH (10:18)
[2017-03-30] MEDS: FUROSEMIDE 40 MG/4 ML VIAL IVP SCH (10:19)
[2017-03-30] MEDS: methylPREDNISolone SUCCINATE 40 MG/ML VIAL IVP SCH (10:19)
[2017-03-30] MEDS: FAMOTIDINE 20 MG TABLET PO SCH (10:19)
[2017-03-30] MEDS: ENOXAPARIN 40 MG/0.4 ML SYRINGE SUBQ SCH (10:19)
[2017-03-30] MEDS: OMEGA-3 ACID ETHYL ESTERS 1 GM CAPSULE PO SCH (10:20)
[2017-03-30] MEDS: MULTIVITAMIN TABLET PO SCH (10:20)
[2017-03-30] MEDS: oxyCODONE 5 MG TABLET PO SCH (10:21)
[2017-03-30] MEDS: CHOLECALCIFEROL 5,000 UNIT CAPSULE PO SCH (10:21)
[2017-03-30] MEDS: LACTOBACILLUS RHAMNOSUS GG CAPSULE PO SCH (10:21)
[2017-03-30] MEDS: CILOSTAZOL 100 MG TABLET PO SCH (10:21)
[2017-03-30] MEDS: SPIRONOLACTONE 25 MG TABLET PO SCH (10:21)
[2017-03-30] MEDS: CYANOCOBALAMIN 5000 MCG TABLET PO SCH (10:22)
[2017-03-30] MEDS: INSULIN GLARGINE 300 UNIT/3 ML PEN SUBQ SCH (10:22)
--- NOTE | 2017-03-30 11:06 | Discharge Plan ---
Discharge Plan Disposition: Home, Self Care Condition: Good Prescriptions: Azithromycin [Zithromax] 250 mg PO DAILY 6 Days #6 tablet Cilostazol [Pletal] 100 mg PO BID #60 tablet metFORMIN [Glucophage] 500 mg PO QPM #30 tablet predniSONE [Prednisone] 10 mg PO DAILY #18 tab.ds.pk Spironolactone [Aldactone] 25 mg PO DAILY #30 tablet Diet: Low Sodium Activity Restrictions: No Restrictions Shower Restrictions: No Driving Restrictions: No Assistance Devices: Wheelchair, Walker Weight Bearing: Full Weight Additional Instructions or Follow Up instructions: You were admitted for COPD exacerbation, and acute on chronic CHF. You have since required oxygen. An activity oxygen test will be performed prior to discharge, and you will likely require oxygen until you get a therapeutic level with the new medication called Spironolactone. You were found to have an elevated Hemoglobin A1C, so at first you started on Lantus injections. Metformin is recommended to be used at bedtime. By keeping your blood sugars more normal, the wounds on your legs will be improved. Your bilateral leg wounds are concerning, and a medication called cilostazol was started to improve circulation and improve wound healing. Your oxygen need is concerning, so Spironolactone was started, so no need to take Potassium and this should be stopped. The supplements that you take may be contributing to your heart burn, so we recommend reducing these or stopping them. Also, any prescribed medication should NEVER be chewed or taken with grapefruit juice. Please see your PCP within one week. Follow-Up Care: [facility] - Wound/Ostomy, [facility] - [facility] No Smoking: If you smoke, Please STOP! Call for help. Follow-up with: Jordon Zee MD [Primary Care Provider] -
[2017-03-30] MEDS: guaiFENesin 600 MG TABLET PO SCH (11:08)
--- NOTE | 2017-03-30 11:16 | DISCHARGE SUMMARY ---
Discharge Summary Admit Date: 03/27/17 Discharge Date: 03/30/17 Discharging Provider: ZEE Quesada Primary Care Provider: Jordon Zee Code Status: Do Not Attempt Resuscitation Condition at Discharge: Good Discharge Disposition: 01 Home, Self Care - DIAGNOSES Admission Diagnoses: Acute on chronic diastolic (congestive) heart failure (I50.33) Bronchitis, not specified as acute or chronic (J40) Chronic obstructive pulmonary disease with (acute) exacerbation (J44.1) Cor pulmonale (chronic) (I27.81) Peripheral vascular disease, unspecified (I73.9) Discharge Diagnoses with Status of Each Condition: Acute on chronic diastolic heart failure (I50.33) chronic, stable. Bronchitis (J40) improved, medical management to continue at home. COPD exacerbation (J44.1) chronic, stable. Cor pulmonale (I27.81) chronic, worsening as evidenced by increased oxygen needs. PVD (peripheral vascular disease) (I73.9) chronic, stable. Diabetes mellitus type 2 in obese (E11.69) new on this admission, care to continue at home. Non compliance w medication regimen (Z91.14) ongoing, patient takes vitamins rather than prescribed medications. Requires continuous at home supplemental oxygen (Z99.81) new on this admission, likely caused by bronchitis with Cor pulmonale. - HPI History of Present Illness: Jessica Nina is a morbidly obese 76-year old patient with a past medical history of obesity, core pulmonale, pulmonary hypertension, diastolic LV dysfunction, PVD, chronic BLE wounds, COPD, peripheral neuropathy, GERD, diverticulitis, urinary incontinence, chronic hearing loss and anxiety. The patient presents with a 4 day history of feeling unwell, nasal congestion, nonproductive cough, mild SOB, and worsening leg edema. She was falling asleep in her rolling walker-chair because of overall exhaustion and fatigue, and this led to her not being on her scheduled medications. Once in the ED she was found to have an oxygen saturation of 84% and a significant cough. She will be admitted for bronchitis and recurrence of CHF by using stress dose steroids, IV antibiotics and IV diuresis. - HOSPITAL COURSE Hospital Course: The following problems/diagnoses were prevalent for this hospital stay: (1) Acute on chronic diastolic heart failure- An echocardiogram was completed during her last admission on 02/11/17 and shows mild concentric LVH with normal systolic function, EF of 60%. There is mild diastolic dysfunction and the LA is moderately dilated. Mild to moderate pulmonary hypertension, RVSP 45mmHg. The right ventricle is normal in size and function. Patient is prescribed furosemide and an ARB at home. Medical management was continued with the addition of starting Spironolactone for pulmonary HTN, which was continued upon discharge. (2) Cor pulmonale (chronic)- An echocardiogram was completed during her last admission on 02/11/17 and shows mild concentric LVH with normal systolic function , EF of 60%. There is mild diastolic dysfunction and the LA is moderately dilated. Mild to moderate pulmonary hypertension, RVSP 45mmHg. The right ventricle is normal in size and function. Patient is prescribed furosemide at home. Spironolactone and furosemide are being used and patient will be prescribed as an outpatient. [id number]: Patient failed her oxygen test performed by respiratory therapy in which she was tested on room air, which was noted to be decreased at 83%. The patient required 3L via nasal cannula to maintain a normal oxygen saturation of 94%. Patient was 87% on 1L, 91% on 2L. I discussed the need for ongoing home oxygen with the patient who was agreeable. The patient was informed of her hypoxia of 83% on room air, which improved to a normal value of 94% on 3L via nasal cannula which will be supplied by an oxygen supply company. The company plans to deliver this equipment in the next few hours, and in the mean time, the patient will have oxygen supplied by a loaner tank that she can leave the hospital with. (3) Bronchitis- Patient has a history of COPD and bronchitis. Patient continues to have a cough and has required oxygen since the time of admission. Patient was continued on antibiotics and monitored for signs of worsening. (4) PVD (peripheral vascular disease)- Patient is well known to our [facility] and sees wound care for her chronic BLE wounds. She has seen a peripheral vascular surgeon in the past. On the LLE, there are at least 2 open wounds that have been gradually becoming worse. Patient was started on cilostazol for improved BLE circulation. Patient was cautioned not to chew this medication or any prescribed medications. (5) COPD (chronic obstructive pulmonary disease)- Patient has a long history of this disease and can be evidenced by most resent echocardiogram. In addition, she is noted to have pulmonary hypertension which suggest/confirms a long- standing history. Patient DOES not take inhalers at home, but needs to consider better management. Patient refused inhaler uses, as she wishes to stick with "homeopathic ideas of medicine". A Long acting beta antagonist, rescue inhaler and an anticholinergic may be helpful in this setting of her disease. (6) Diabetes mellitus type 2 in obese- Patient had a HgA1C of 6.6, which is a diagnostic criteria for DM. Patient does not believe she has this disease since "she does not eat bread". Lantus 10 units started and was discontinued upon discharge. Metformin was prescribed and to be taken each PM. (7) non compliance with medical regimen- Patient can be very particular with medications, their use and when to take them. She admits to grapefruit juice use at home, chewing several medications and using vitamins in place of her prescription medications. Disposition: Patient was transported in stable condition via ride set up by social work. Patient did qualify for home oxygen, so this was set up to be delivered in the next few hours. New prescriptions were sent to pharmacy of choice. - ALLERGIES Allergies/Adverse Reactions: Allergies Allergy/AdvReac Type Severity Reaction Status Date / Time aloe Allergy Unknown Verified 10/09/15 16:32 - MEDICATIONS Home Medications: Ambulatory Orders Medication Instructions Recorded Confirmed Losartan Potassium 50 mg PO DAILY 10/09/15 03/27/17 Lactobacillus Acidophilus 1 each PO BID 05/06/16 03/28/17 [Acidophilus] [place]-3/Dha/Epa/Fish Oil [Fish Oil 1,000 mg PO BID 05/06/16 03/28/17 1,000 mg Softgel] Albuterol Sulfate [Proair Hfa 2 puffs INH Q4H PRN 03/28/17 03/28/17 Inhaler] Furosemide 20 mg PO DAILY 03/28/17 03/28/17 Oxybutynin [Oxytrol] 3.9 patch TOP Q3D 03/28/17 03/28/17 oxyCODONE [Roxicodone] 5 mg PO BID 03/28/17 03/28/17 Azithromycin [Zithromax] 250 mg PO DAILY 6 Days #6 tablet 03/30/17 Cilostazol [Pletal] 100 mg PO BID #60 tablet 03/30/17 Multivitamin [Theragran] 1 tab PO DAILY tablet 03/30/17 Spironolactone [Aldactone] 25 mg PO DAILY #30 tablet 03/30/17 metFORMIN [Glucophage] 500 mg PO QPM #30 tablet 03/30/17 predniSONE [Prednisone] 10 mg PO DAILY #18 tab.ds.pk 03/30/17 - PHYSICAL EXAM AT DISCHARGE General Appearance: positive: No acute distress, Alert, Anxious Eyes Bilateral: positive: Normal inspection, PERRL ENT: positive: ENT inspection nml, Pharynx nml, Dry mucous membranes Neck: positive: Nml inspection, Thyroid nml, No JVD, Trachea midline Respiratory: positive: Chest non-tender, No respiratory distress, Other ( diminished with fine crackles bilaterally.) Cardiovascular: positive: No gallop, Irregularly irregular, Systolic murmur, Decreased pulse(s) Peripheral Pulses: positive: 1+ (faint BLE) Abdomen: positive: Non-tender, Nml bowel sounds, Hepatomegaly Back: positive: Nml inspection Skin: positive: No rash, Warm, Dry, Pallor Extremities: positive: Non-tender, Full ROM, Nml appearance, Pedal edema ( chronic equal BLE edema.), Joint swelling Neurologic/Psychiatric: positive: Oriented x3, CN's nml (2-12), Motor nml, Sensation nml, Weakness, Sensory loss, Depressed mood/affect (resistant at times , non-acceptance.) Reflexes: Bicep (R): 2+, Bicep (L): 2+ - LABS Result Diagrams: 03/30/17 05:32 03/30/17 05:32 - DIAGNOSTIC IMAGING Diagnostic Imaging Results: Final report reviewed Diagnostic Imaging Results Comments: EXAM: CHEST RADIOGRAPHY EXAM DATE: 03/27/2017 05:01 PM. CLINICAL HISTORY: Hypoxia. COMPARISON: 02/09/2017 chest x-ray. TECHNIQUE: 1 view. FINDINGS: Lungs/Pleura: Pulmonary vascular congestion without overt edema. No pleural effusion or pneumothorax. Mediastinum: Within exam limitations, the cardiomediastinal contour is normal. Other: None. IMPRESSION: Pulmonary vascular congestion. No overt edema or focal air space disease. EXAM: CT HEAD EXAM DATE: 03/29/2017 05:50 AM. CLINICAL HISTORY: Slurred speech. COMPARISON: None. TECHNIQUE: Multiaxial CT images were obtained from the foramen magnum to the vertex. Reformats: Coronal. IV contrast: None. In accordance with CT protocol optimization, one or more of the following dose reduction techniques were utilized for this exam: automated exposure control, adjustment of mA and/or KV based on patient size, or use of iterative reconstructive technique. FINDINGS: Parenchyma: No intraparenchymal hemorrhage. No evidence of mass, midline shift, or CT findings of acute infarction. Joy-white differentiation is distinct. Extraaxial Spaces: Normal for age. No subdural or epidural collections identified. Ventricles: The ventricles and cortical sulci are mildly enlarged, consistent with age-related tissue loss. Sinuses and orbits: Imaged paranasal sinuses, orbits, and mastoids show no significant abnormality. Bones: No evidence of fracture or calvarial defect. Other: Mild intracranial atherosclerosis is noted. IMPRESSION: No acute intracranial process. ASPECTS score 10. - FOLLOW UP Follow Up: Disposition: 01 Home, Self Care Condition: Good Prescriptions: Azithromycin [Zithromax] 250 mg PO DAILY 6 Days #6 tablet Cilostazol [Pletal] 100 mg PO BID #60 tablet metFORMIN [Glucophage] 500 mg PO QPM #30 tablet predniSONE [Prednisone] 10 mg PO DAILY #18 tab.ds.pk Spironolactone [Aldactone] 25 mg PO DAILY #30 tablet Diet: Low Sodium Activity Restrictions: No Restrictions Shower Restrictions: No Driving Restrictions: No Assistance Devices: Wheelchair, Walker Weight Bearing: Full Weight Additional Instructions or Follow Up instructions: You were admitted for COPD exacerbation, and acute on chronic CHF. You have since required oxygen. An activity oxygen test will be performed prior to discharge, and you will likely require oxygen until you get a therapeutic level with the new medication called Spironolactone. You were found to have an elevated Hemoglobin A1C, so at first you started on Lantus injections. Metformin is recommended to be used at bedtime. By keeping your blood sugars more normal, the wounds on your legs will be improved. Your bilateral leg wounds are concerning, and a medication called cilostazol was started to improve circulation and improve wound healing. Your oxygen need is concerning, so Spironolactone was started, so no need to take Potassium and this should be stopped. The supplements that you take may be contributing to your heart burn, so we recommend reducing these or stopping them. Also, any prescribed medication should NEVER be chewed or taken with grapefruit juice. Please see your PCP within one week. Follow-Up Care: [facility] - Wound/Ostomy, [facility] - Diabetes Ed - TIME SPENT Time Spent in Discharge (Minutes): 45
[2017-03-30 12:46] VITALS: BP 110/56
== END 2017-03-30 15:55 | disposition home or self-care (01) | DRG 292 ==
LOC: ED 16:18 → MS2 20:49
PROVIDERS: ADMIT Internal Medicine; ATTEND Nurse Practitioner
DX: J40 Bronchitis, not specified as acute or chronic (principal); R09.02 Hypoxemia; R06.01 Orthopnea; I50.33 Acute on chronic diastolic (congestive) heart failure; Z68.41 Body mass index [BMI] 40.0-44.9, adult; J44.0 Chronic obstructive pulmonary disease with (acute) lower respiratory infection; I73.9 Peripheral vascular disease, unspecified; J45.909 Unspecified asthma, uncomplicated; G62.9 Polyneuropathy, unspecified; J44.1 Chronic obstructive pulmonary disease with (acute) exacerbation; L97.929 Non-pressure chronic ulcer of unspecified part of left lower leg with unspecified severity; L97.919 Non-pressure chronic ulcer of unspecified part of right lower leg with unspecified severity; J20.9 Acute bronchitis, unspecified; I11.0 Hypertensive heart disease with heart failure; I27.81 Cor pulmonale (chronic); E11.622 Type 2 diabetes mellitus with other skin ulcer; E11.51 Type 2 diabetes mellitus with diabetic peripheral angiopathy without gangrene; E66.01 Morbid (severe) obesity due to excess calories; I27.29 Other secondary pulmonary hypertension; H91.90 Unspecified hearing loss, unspecified ear; E11.42 Type 2 diabetes mellitus with diabetic polyneuropathy; E11.65 Type 2 diabetes mellitus with hyperglycemia; F41.9 Anxiety disorder, unspecified; K21.9 Gastro-esophageal reflux disease without esophagitis; R32 Unspecified urinary incontinence; H54.7 Unspecified visual loss; Z91.14 Patient's other noncompliance with medication regimen; Z99.81 Dependence on supplemental oxygen; Z79.899 Other long term (current) drug therapy; Z79.891 Long term (current) use of opiate analgesic; Z79.51 Long term (current) use of inhaled steroids; E06.3 Autoimmune thyroiditis
CPT/HCPCS: 36415; 70450; 71045; 80048; 80053; 83036; 83540; 83690; 83735; 83880; 84466; 84484; 85025; 86376; 86800; 87070; 87205; 87275; 87276; 93005; 94640; 94761; 96374; 96375; 99284

== ENCOUNTER 2017-04-14 14:37 | Outpatient (CLI) | payer MEDICARE, MEDICAID | END 2017-04-14 14:38 | disposition home or self-care (01) | LOC: SC 14:37 | PROVIDERS: ATTEND Internal Medicine Pulmonary Disease | DX: G47.10 Hypersomnia, unspecified (principal); R53.83 Other fatigue; R09.02 Hypoxemia; R06.83 Snoring | CPT/HCPCS: 99203; G0463; 99212 ==